=== PATIENT | female | born 1945 | race Caucasian/White ===

== ENCOUNTER 2017-05-05 14:41 | Inpatient (IN) ==
--- NOTE | 2017-05-05 14:55 | EKG Report ---
Stationary ECG Study [facility] ER Test Date: 05/05/2017 2:49:49 PM Pat Name: KAUR WILBURN Department: Room: Gender: F Distance Education Coordinator: : 1945 Requested by: Walker Pride Order Number: [id number] Reading MD: JR TAPIA Intervals [place] Rate: 96 P: 999 NC: 0 QRS: 30 QRSD: 92 T: 38 QT: 361 QTc: 414 Interpretive Statements ATRIAL FIBRILLATION at 96 bpm NONSPECIFIC T WAVE ABNORMALITY, possibly DIGITALIS EFFECT Electronically Signed On 05-06-17 12:21:26 CDT by JR TAPIA [email or web address]
--- NOTE | 2017-05-05 15:14 | XRay Report ---
XR chest 1V portable Indication: Shortness of breath Comparison: None available Findings: The heart and mediastinum are normal in size and configuration. The pulmonary vascularity is normal in caliber. No lung infiltrates, effusions, pneumothorax or other abnormality is demonstrated. Impression: Normal chest x-ray PROCEDURE INTERPRETED AT [facility] DEPARTMENT OF RADIOLOGY Final Report Signed by: Dr. Duncan Ace
[2017-05-05 15:29] LABS: Basophils # 0.1 10*3/uL (0.0-0.2); Basophils % 1.2 % (0.0-0.8); Eosinophils # 0.3 10*3/uL (0.0-0.87); Eosinophils % 4.3 % (0.00-10.9); Hematocrit 35.4 VOL% (35.7-47.0); Hemoglobin 12.1 GM/DL (12.0-16.0); Immature Granulocytes % 0.4 %; Immature Granulocytes Absolute 0.03 #; Lymphocytes # 1.7 10*3/uL (1.4-4.0); Mean Corpuscular HGB Conc 34.2 GM/DL (32-36); Mean Corpuscular Hemoglobin 33 PG (27-34); Mean Corpuscular Volume 95.9 FL (87-102); Mean Platelet Volume 10.1 FL (9.6-12.0); Monocytes # 0.5 10*3/uL (0.11-0.8); Monocytes % 6.3 % (1.7-12.7); Neutrophils # 4.7 10*3/uL (1.4-7.4); Neutrophils % 64.8 % (38.7-73.9); Platelet Count 266 T/CUMM (130-400); Red Blood Count 3.69 MC/CUMM (3.8-5.5); Red Cell Distribution Width 12.9 % (9.3-17.3); White Blood Count 7.3 T/CUMM (4-12)
[2017-05-05 15:37] LABS: INR 3.6
[2017-05-05 15:39] LABS: PT Patient Result 41.5 SECS
[2017-05-05 16:04] LABS: Blood Urea Nitrogen 28 MG/DL (7-18); Calcium 8.4 MG/DL (8.5-10.1); Glucose 88 MG/DL (74-106); Magnesium 2.5 MG/DL (1.8-2.4); Osmolality,Calculated 287.1 MOS/KG (273-304); Potassium 4.6 MMOL/L (3.5-5.1); Sodium 142 MMOL/L (136-145); Troponin I Only < 0.015 NG/ML (0.00-0.045)
[2017-05-05] MEDS ORDERED: diphenhydrAMINE CAP 25 MG CAPSULE PO PRN (17:08)
[2017-05-05] MEDS ORDERED: MAGNESIUM SULF RIDER 2 GM in PREMIX 1 EACH IV PRN (17:08)
[2017-05-05] MEDS ORDERED: ACETAMINOPHEN 325 MG TABLET PO PRN (17:08)
[2017-05-05] MEDS ORDERED: DOCUSATE SODIUM 100 MG CAPSULE PO PRN (17:08)
[2017-05-05] MEDS ORDERED: MAGNESIUM SULF RIDER 4 GM in PREMIX 1 EACH IV PRN (17:08)
[2017-05-05] MEDS ORDERED: ONDANSETRON 4 MG/2 ML VIAL IV PRN (17:08)
[2017-05-05] MEDS ORDERED: WARFARIN 5 MG TABLET PO SCH (17:30)
--- NOTE | 2017-05-05 17:30 | Cardiology History & Physical ---
Assessment and Plan - Time spent with patient Time spent with patient: Greater than 30 minutes (due to assessment, plan, and documentation) (1) Dizziness Status: Acute Assessment and plan: See plan of care listed below. Current Visit: Yes (2) Weakness Status: Acute Assessment and plan: See plan of care listed below. Current Visit: Yes (3) Paroxysmal atrial fibrillation Status: Chronic Assessment and plan: See plan of care listed below. Current Visit: Yes (4) Hypertension Status: Chronic Assessment and plan: See plan of care listed below. Current Visit: Yes (5) Chronic anticoagulation Status: Chronic Assessment and plan: See plan of care listed below. Current Visit: Yes (6) Hypercholesterolemia Status: Chronic Assessment and plan: See plan of care listed below. Current Visit: Yes (7) GERD (gastroesophageal reflux disease) Status: Chronic Assessment and plan: See plan of care listed below. Current Visit: Yes History of Present Illness Chief complaint: dizziness, weakness History of present illness: RECORDING STUDIO INTERN: Dr. Joy PCP: Dr. Norman Ms. Torres is being seen in the emergency room, #11. Ms. Torres is a 71 year old female with history of paroxysmal atrial fibrillation, chronic hypertension, chronic dyspnea, easy fatigability, GERD, hypercholesterolemia, chronic anticoagulation. Risk factors are significant for : Age, hypertension, sedentary lifestyle. She was last seen by Dr. Joy in clinic on December 29, 2016 and at that time was doing well. She is a lifetime non -smoker. She has required cardioversion in the past, approximately 6 or 7 years ago. She was sent to the emergency room from Dr. Norman's office today for further evaluation of atrial fibrillation. She tells me that she has felt fatigued for the past 4 weeks, but worse this week. She tells me that 2 days ago she fell twice in 1 day due to dizziness and lightheadedness. She denies any syncopal episodes. She states she can feel occasional palpitations on exertion. Her is at the bedside and reports that he has been checking her heart rate and blood pressure this week her blood pressure has been running around 90/60 with heart rates in the 90s. He states her baseline is usually a heart rate in the 80s. She denies any chest pain, shortness of breath, nausea, vomiting, diaphoresis, melena, hematochezia, hematuria, dysuria, fever, chills. Additional ROS includes easy fatigability, chronic dyspnea, easy bruising. Upon arrival, her chest x-ray was normal, BNP was 170 with creatinine 1.5 and GFR 37. Troponin was negative. EKG reveals atrial fibrillation. H&H is stable at 12.1 & 35.4. Urinalysis is pending. Blood pressure has been stable with systolic BP between 114-135 and heart rates 90-102. ASSESSMENT/PLAN: 1. DIZZINESS - Will check orthostatic vital signs. Continue to monitor vital signs. Will further discuss with Dr. Perez and await additional recommendations. 2. WEAKNESS - Will check urinalysis. It's possible her dizziness and weakness are related to her hypotension at home and/or her atrial fibrillation, although her BP is currently well controlled and she is currently in atrial fibrillation with controlled ventricular response. 3. PAROXYSMAL ATRIAL FIBRILLATION - Continue coreg and amiodarone. Will check TSH. She is chronically anticoagulated with Coumadin. Will monitor INR. 4. HYPERTENSION - Currently well controlled but reportedly hypotensive at home this week. Will monitor and adjust accordingly. 5. CHRONIC ANTICOAGULATION - Will hold today's dose of Coumadin and recheck INR in AM. Anticipate resuming Coumadin tomorrow. 6. HYPERCHOLESTEROLEMIA - Continue lipid lowering agent. Check lipid panel in AM. 7. GERD - Continue PPI. Home Medications Medication Instructions Recorded Confirmed Type Amiodarone HCl [Pacerone] 200 mg PO QAM 05/05/17 05/05/17 History Carvedilol [Coreg] 6.25 mg PO BID 05/05/17 05/05/17 History Meloxicam 15 mg PO QOTHER DAY 05/05/17 05/05/17 History Omeprazole 20 mg PO QAM 05/05/17 05/05/17 History Selenium [Selenium Tab] 50 mcg PO DAILY 05/05/17 05/05/17 History Warfarin [Coumadin] 2.5 mg PO SUTUWETHSA 05/05/17 05/05/17 History Warfarin [Coumadin] 5 mg PO MOFR 05/05/17 05/05/17 History Zolpidem Tartrate 10 mg PO BEDTIME 05/05/17 05/05/17 History amLODIPine [Norvasc] 10 mg PO QAM 05/05/17 05/05/17 History traMADol TAB [Ultram] 50 mg PO Q12H PRN 05/05/17 05/05/17 History Allergies Allergy/AdvReac Type Severity Reaction Status Date / Time No Known Allergies Allergy Verified 05/05/17 14:46 12 point system: reviewed and no additional remarkable complaints except as stated Medical,Surgical,& Family Hx - Medical History Cardio: History of: Cardiac Dysrhythmia (atrial fibrillation ), Hypertension Endocrine: History of: Dyslipidemia Gastrointestinal: History of: GERD Musculoskeletal: History of: Musculoskeletal Problems (chronic left knee pain) - Surgical History Reproductive Surgeries: Surgical HX of;: Hysterectomy (partial) - Family History Family History: Reports;: Family Heart Disease - Social History Smoking Status: Never smoker Frequency of Alcohol Use: None Type of Drug Use: None Marital Status: Lives With:: Spouse Functional capacity: independent ambulation Cardiology Physical Exam - Constitutional Vitals: Vital Signs Temp Pulse Resp BP Pulse Ox 98.2 F 90 18 121/71 98 05/05/17 15:00 05/05/17 16:00 05/05/17 16:00 05/05/17 16:00 05/05/17 16:00 Intake and Output 05/05/17 05/05/17 05/05/17 06:59 14:59 22:59 Other: Weight 158 lb Patient Weight 05/06/17 06:59 Weight 158 lb Exam: General appearance: Pleasant and cooperative. Overweight, no acute distress. - Head Head exam: Present: normal inspection, normocephalic, atraumatic. Absent: hematoma, laceration - Eye Eye exam: Present: EOMI. Absent: conjunctival injection, nystagmus, periorbital swelling, scleral icterus, laceration to eyelids Pupils: Present: PERRL. Absent: constricted, dilated, fixed, irregular, unequal - ENT ENT exam: Present: normal exam, normal external ear exam - Neck Neck exam: Present: normal inspection. Absent: lymphadenopathy, meningismus, tenderness, thyromegaly, carotid bruit - Respiratory Respiratory exam: Present: diminished in posterior bases, otherwise clear to auscultation bilaterally. Absent: accessory muscle use, chest wall tenderness, rhonchi, wheezing. - Cardiovascular Cardiovascular exam: Present: regular rate and rhythm. Absent: gallop, JVD, rubs, murmur - GI/Abdominal GI/Abdominal exam: Present: normal bowel sounds, soft. Absent: distended, firm , guarding, hernia, mass, tenderness, rebound. - Extremities Exam Extremities exam: Present: normal inspection, normal capillary refill. Upper extremity pulses 2+. Lower extremity pulses 2+. Absent: calf tenderness, edema -Musculoskeletal Exam Musculoskeletal: Present: No Fluid Collection, No Pain, Normal Range of Motion - Back Exam Back exam: Present: normal inspection. Absent: muscle spasm, vertebral tenderness - Neurological Exam Neurological exam: Present: alert, oriented X3, grossly intact without resting or essential tremor - Psychiatric Psychiatric exam: Present: normal affect, normal mood - Skin Skin exam: Present: normal color, warm, dry, intact. Absent: cyanosis, diaphoretic, rash, urticaria Result/EKG - Labs CBC & BMP: 05/05/17 15:19 05/05/17 15:19 Lab Results: I have reviewed the past 24 hour labs Labs: Laboratory Results - last 24 hr 05/05/17 05/05/17 05/05/17 15:19 15:19 15:19 WBC 7.3 RBC 3.69 L Hgb 12.1 Hct 35.4 L MCV 95.9 MCH 33 MCHC 34.2 RDW 12.9 Plt Count 266 MPV 10.1 Neut % (Auto) 64.8 Lymph % (Auto) 23.0 [place] % (Auto) 6.3 Eos % (Auto) 4.3 Baso % (Auto) 1.2 H Neut # (Auto) 4.7 Lymph # (Auto) 1.7 [place] # (Auto) 0.5 Eos # (Auto) 0.3 Baso # (Auto) 0.1 Immature Gran % 0.4 Nucleated RBC % 0.0 Immature Gran # 0.03 Nucleated RBCs # 0.00 INR 3.6 PT Patient/Control Mix 41.5 Sodium 142 Potassium 4.6 Chloride 110 H Carbon Dioxide 23 Anion Gap 13.6 BUN 28 H Creatinine 1.50 H GFR Calculation 37 BUN/Creatinine Ratio 18.00 Glucose 88 Calculated Osmolality 287.1 Calcium 8.4 L Magnesium 2.5 H Troponin I < 0.015 B-Natriuretic Peptide 05/05/17 15:19 WBC RBC Hgb Hct MCV MCH MCHC RDW Plt Count MPV Neut % (Auto) Lymph % (Auto) [place] % (Auto) Eos % (Auto) Baso % (Auto) Neut # (Auto) Lymph # (Auto) [place] # (Auto) Eos # (Auto) Baso # (Auto) Immature Gran % Nucleated RBC % Immature Gran # Nucleated RBCs # INR PT Patient/Control Mix Sodium Potassium Chloride Carbon Dioxide Anion Gap BUN Creatinine GFR Calculation BUN/Creatinine Ratio Glucose Calculated Osmolality Calcium Magnesium Troponin I B-Natriuretic Peptide 170 H - EKG EKG results: interpreted by me EKG shows: atrial fibrillation
[2017-05-05] MEDS ORDERED: CARVEDILOL 6.25 MG TABLET PO SCH (21:00)
[2017-05-05] MEDS: ATORVASTATIN 10 MG TABLET PO SCH (21:39)
[2017-05-05] MEDS: ASCORBIC ACID 500 MG TABLET PO SCH (21:39)
[2017-05-06 05:39] LABS: Basophils # 0.1 10*3/uL (0.0-0.2); Basophils % 1.6 % (0.0-0.8); Eosinophils # 0.3 10*3/uL (0.0-0.87); Eosinophils % 6.5 % (0.00-10.9); Hematocrit 32.7 VOL% (35.7-47.0); Hemoglobin 11.3 GM/DL (12.0-16.0); Immature Granulocytes % 0.4 %; Immature Granulocytes Absolute 0.02 #; Lymphocytes # 1.5 10*3/uL (1.4-4.0); Lymphocytes % 34.5 % (21.3-54.2); Mean Corpuscular HGB Conc 34.6 GM/DL (32-36); Mean Corpuscular Hemoglobin 35 PG (27-34); Mean Corpuscular Volume 99.7 FL (87-102); Mean Platelet Volume 10.5 FL (9.6-12.0); Monocytes # 0.4 10*3/uL (0.11-0.8); Monocytes % 8.3 % (1.7-12.7); Neutrophils # 2.2 10*3/uL (1.4-7.4); Neutrophils % 48.7 % (38.7-73.9); Platelet Count 231 T/CUMM (130-400); Red Blood Count 3.28 MC/CUMM (3.8-5.5); Red Cell Distribution Width 12.9 % (9.3-17.3); White Blood Count 4.5 T/CUMM (4-12)
[2017-05-06 06:23] LABS: Calcium 8.5 MG/DL (8.5-10.1); Magnesium 2.3 MG/DL (1.8-2.4); Potassium 4.7 MMOL/L (3.5-5.1); Risk Ratio 3.11; Thyroid Stimulating Hormone 1.57 uIU/ml (0.358-3.74)
[2017-05-06 06:40] LABS: PT Patient Result 34.1 SECS
[2017-05-06] MEDS: PANTOPRAZOLE 40 MG TABLET PO SCH (08:58)
[2017-05-06] MEDS: AMIODARONE 200 MG TABLET PO SCH (08:58)
[2017-05-06] MEDS: ASCORBIC ACID 500 MG TABLET PO SCH ×2 (08:58→20:20)
[2017-05-06] MEDS: METOPROLOL SUCCINATE XL 25 MG TABLET PO SCH (08:58)
--- NOTE | 2017-05-06 11:31 | Cardiology Progress Note ---
Assessment and Plan (1) Paroxysmal atrial fibrillation Status: Acute Assessment and plan: The patient has symptomatic atrial fibrillation. We discussed the options for management and we are going to do a cardioversion. She is already on chronic anticoagulation with a therapeutic INR. We are going to go ahead and do this today and monitor her overnight. She remains in sinus rhythm hopefully we can discharge her home tomorrow. Current Visit: Yes (2) Dizziness Status: Acute Assessment and plan: I think the weakness and dizziness are probably related to her atrial fibrillation. She tells me this is the way she has felt in the past when she had it and after cardioversion she felt better. I am going to do a cardioversion today. Current Visit: Yes (3) Generalized weakness Status: Acute Current Visit: Yes (4) Chronic anticoagulation Status: Chronic Current Visit: Yes (5) GERD (gastroesophageal reflux disease) Status: Chronic Current Visit: Yes (6) Hypercholesterolemia Status: Chronic Current Visit: Yes (7) Hypertension Status: Chronic Current Visit: Yes Cardiology - PN: Subj Interval history: The patient continues to feel fatigued and weak today. I reviewed all of her tracings and discussed extensively with her the options for management. Apparently she feels very fatigued and weak whenever she is in atrial fibrillation. After discussing the options I am going to go ahead and cardiovert her back to sinus rhythm. She is on chronic anticoagulation and her INR is 3.0. We discussed the risk, alternatives and potential benefits and she understands and wishes to proceed. Current Medications Acetaminophen (Tylenol Tab) 650 mg PO Q4H PRN PRN Reason: fever, headache/body aches Amiodarone HCl (Cordarone Tab) 200 mg PO QAM COUNTS INCLUDE 234 BEDS AT THE [facility] Last Admin: 05/06/17 08:58 Dose: 200 mg Ascorbic Acid (Vitamin C Tab) 1,000 mg PO BID COUNTS INCLUDE 234 BEDS AT THE [facility] Last Admin: 05/06/17 08:58 Dose: 1,000 mg Atorvastatin Calcium (Lipitor) 10 mg PO BEDTIME COUNTS INCLUDE 234 BEDS AT THE [facility] Last Admin: 05/05/17 21:39 Dose: 10 mg Diphenhydramine HCl (Benadryl Cap) 25 mg PO Q6H PRN PRN Reason: Itching Docusate Sodium (Colace Cap) 100 mg PO BID PRN PRN Reason: Constipation Magnesium Sulfate 2 gm/ Premix 50 mls @ 25 mls/hr IV .PER PROTOCOL PRN; Protocol PRN Reason: Per Protocol Magnesium Sulfate 4 gm/ Premix 100 mls @ 25 mls/hr IV .PER PROTOCOL PRN; Protocol PRN Reason: Per Protocol Metoprolol Succinate (Toprol Xl) 25 mg PO DAILY COUNTS INCLUDE 234 BEDS AT THE [facility] Last Admin: 05/06/17 08:58 Dose: 25 mg Ondansetron HCl (Zofran Inj) 4 mg IV Q4H PRN PRN Reason: Nausea Pantoprazole Sodium (Protonix Tab) 40 mg PO DAILY COUNTS INCLUDE 234 BEDS AT THE [facility] Last Admin: 05/06/17 08:58 Dose: 40 mg Warfarin Sodium (Coumadin) 2.5 mg PO SUTUWETHSA COUNTS INCLUDE 234 BEDS AT THE [facility] Warfarin Sodium (Coumadin) 5 mg PO MOFR COUNTS INCLUDE 234 BEDS AT THE [facility] Last Admin: 05/06/17 07:12 Dose: Not Given Exam (Progress Note) - Constitutional Vitals: Period Temp Pulse Resp BP Sys/Nino Pulse Ox Last 24 Hr 96.5 F-98.5 F 89-102 16-20 95-138/56-89 95-102 Exam: General: Frail, elderly HEENT: Normocephalic, atraumatic Neck: Supple Neck, Midline Trachea Cardiac: Irregular rhythm, 2/6 systolic murmur, no gallop, no rub Lungs: Clear to Ascultation, No Wheeze, Rales, Rhonchi Neuro: Cranial Nerve 2-12 Intact, diffuse generalized weakness Abdomen: Soft, Active Bowel Sounds, No Masses, No Pulsations/Bruits Skin: Normal color, no rash Extremities: No Clubbing, No Cyanosis, No Edema, Normal Upper Extr. Pulses Musculoskeletal: No acute abnormality noted Psychiatric: The patient is alert and oriented. The patient has a flat affect but does not appear to be anxious or depressed. Result/EKG - Labs CBC & BMP: 05/06/17 05:02 05/06/17 05:02 Lab Results: I have reviewed the past 24 hour labs Labs: Laboratory Results - last 24 hr 05/05/17 05/05/17 05/05/17 15:19 15:19 15:19 WBC 7.3 RBC 3.69 L Hgb 12.1 Hct 35.4 L MCV 95.9 MCH 33 MCHC 34.2 RDW 12.9 Plt Count 266 MPV 10.1 Neut % (Auto) 64.8 Lymph % (Auto) 23.0 [place] % (Auto) 6.3 Eos % (Auto) 4.3 Baso % (Auto) 1.2 H Neut # (Auto) 4.7 Lymph # (Auto) 1.7 [place] # (Auto) 0.5 Eos # (Auto) 0.3 Baso # (Auto) 0.1 Immature Gran % 0.4 Nucleated RBC % 0.0 Immature Gran # 0.03 Nucleated RBCs # 0.00 INR 3.6 PT Patient/Control Mix 41.5 Sodium 142 Potassium 4.6 Chloride 110 H Carbon Dioxide 23 Anion Gap 13.6 BUN 28 H Creatinine 1.50 H GFR Calculation 37 BUN/Creatinine Ratio 18.00 Glucose 88 Calculated Osmolality 287.1 Calcium 8.4 L Magnesium 2.5 H Troponin I < 0.015 B-Natriuretic Peptide Triglycerides Cholesterol LDL Cholesterol VLDL Cholesterol HDL Cholesterol Heart Disease Risk Ratio [facility] 3rd Generation 05/05/17 05/06/17 05/06/17 15:19 05:02 05:02 WBC 4.5 D RBC 3.28 L Hgb 11.3 L Hct 32.7 L MCV 99.7 MCH 35 H MCHC 34.6 RDW 12.9 Plt Count 231 MPV 10.5 Neut % (Auto) 48.7 Lymph % (Auto) 34.5 [place] % (Auto) 8.3 Eos % (Auto) 6.5 Baso % (Auto) 1.6 H Neut # (Auto) 2.2 Lymph # (Auto) 1.5 [place] # (Auto) 0.4 Eos # (Auto) 0.3 Baso # (Auto) 0.1 Immature Gran % 0.4 Nucleated RBC % 0.0 Immature Gran # 0.02 Nucleated RBCs # 0.00 INR PT Patient/Control Mix Sodium 143 Potassium 4.7 Chloride 111 H Carbon Dioxide 27 Anion Gap 9.7 BUN 23 H Creatinine 1.20 H GFR Calculation 48 BUN/Creatinine Ratio 19.00 Glucose 86 Calculated Osmolality 287.0 Calcium 8.5 Magnesium 2.3 Troponin I B-Natriuretic Peptide 170 H Triglycerides 80 Cholesterol 174 LDL Cholesterol 114.0 VLDL Cholesterol 16.0 HDL Cholesterol 56 Heart Disease Risk Ratio 3.11 TSH 3rd Generation 1.570 05/06/17 05:02 WBC RBC Hgb Hct MCV MCH MCHC RDW Plt Count MPV Neut % (Auto) Lymph % (Auto) [place] % (Auto) Eos % (Auto) Baso % (Auto) Neut # (Auto) Lymph # (Auto) [place] # (Auto) Eos # (Auto) Baso # (Auto) Immature Gran % Nucleated RBC % Immature Gran # Nucleated RBCs # INR 3.0 PT Patient/Control Mix 34.1 Sodium Potassium Chloride Carbon Dioxide Anion Gap BUN Creatinine GFR Calculation BUN/Creatinine Ratio Glucose Calculated Osmolality Calcium Magnesium Troponin I B-Natriuretic Peptide Triglycerides Cholesterol LDL Cholesterol VLDL Cholesterol HDL Cholesterol Heart Disease Risk Ratio TSH 3rd Generation - EKG EKG results: interpreted by me
[2017-05-06] MEDS ORDERED: MIDAZOLAM 10 MG/2 ML VIAL ONE (11:35)
[2017-05-06] MEDS ORDERED: FLUMAZENIL 0.5 MG/5 ML VIAL IV ONE (11:35)
[2017-05-06] MEDS ORDERED: MIDAZOLAM 2 MG/2 ML VIAL IV ONE (11:49)
[2017-05-06] MEDS ORDERED: MIDAZOLAM 10 MG/2 ML VIAL IV ONE (11:51)
--- NOTE | 2017-05-06 12:10 | Operative Note ---
Procedure: The patient had symptomatic atrial fibrillation and is on chronic anticoagulation. She is therapeutic on her anticoagulation and we elected to perform DC cardioversion to sinus rhythm. After informed consent was obtained patient was sedated lightly to facilitate the procedure and underwent successful DC cardioversion with a single 360 J shock to normal sinus rhythm. There were no problems or complications with the procedure. Surgeon / Physician: Ronak Stockton Estimated blood loss: none, minimal Specimens: none sent Condition: stable Results - Labs CBC & BMP: 05/06/17 05:02 05/06/17 05:02 Discharge Plan - Discharge Medications No Action Omeprazole 20 mg PO QAM Amiodarone HCl [Pacerone] 200 mg PO QAM traMADol TAB [Ultram] 50 mg PO Q12H PRN PRN Reason: Pain amLODIPine [Norvasc] 10 mg PO QAM Warfarin [Coumadin] 5 mg PO MOFR Meloxicam 15 mg PO QOTHER DAY Zolpidem Tartrate 10 mg PO BEDTIME Atorvastatin [Lipitor] 10 mg PO BEDTIME Selenium [Selenium Tab] 200 mcg PO DAILY Warfarin [Coumadin] 2.5 mg PO SUTUWETHSA Carvedilol [Coreg] 6.25 mg PO BID Lisinopril 20 mg PO DAILY - Follow Up or Referral - Forms/Instructions
--- NOTE | 2017-05-06 12:49 | ECHO Report ---
Evelin Torres Exam Date: 05/06/2017 09:53 Referring Physician: Technologist: Ale Lopes Age: 71 Ht (in): 67 Wt (lb): 158 Gender: F Exam Location: [facility] Indications: chronic anticoag, hypercholesterolemia, A Fib, HTN, weakness, near syncope, GERD, dizzy BP: 110 / 56 HR: 89 Rhythm: Sinus Technical Quality: IMPRESSIONS Normal left ventricular size and systolic function, left ventricular ejection fraction is estimated at 55-60 %. Mild bilateral atrial enlargement. Trace mitral valve regurgitation. Mild aortic valve sclerosis without stenosis. Trace tricuspid valve regurgitation. MEASUREMENTS (Male / Female) Normal Values 2D ECHO LV Diastolic Diameter PLAX 4.3 cm 4.2 - 5.9 / 3.9 - 5.3 cm LV Systolic Diameter PLAX 2.1 cm LV Fractional Shortening PLAX 50.2 % IVS Diastolic Thickness 1.2 cm 0.6 - 1.0 / 0.6 - 0.9 cm LVPW Diastolic Thickness 1.0 cm 0.6 - 1.0 / 0.6 - 0.9 cm RV Internal Dim ED PLAX 3.1 cm Aortic Root Diameter 2.4 cm LA Systolic Diameter LX 4.0 cm 3.0 - 4.0 / 2.7 - 3.8 cm DOPPLER TR Peak Velocity 236.0 cm/s TR Peak Gradient 22.3 mmHg FINDINGS Left Ventricle Normal left ventricular size and systolic function, left ventricular ejection fraction is estimated at 55-60 %. Right Ventricle Normal right ventricular size. Right Atrium The right atrium is mildly enlarged. Left Atrium The left atrium is mild- moderately enlarged. Mitral Valve Morphologically normal mitral valve. Trace mitral valve regurgitation. Aortic Valve Mild aortic valve sclerosis without stenosis. Tricuspid Valve Morphologically normal tricuspid valve. Trace tricuspid valve regurgitation. Pulmonic Valve Morphologically normal pulmonic valve. Pericardium No pericardial effusion. Aorta Normal size aortic root and proximal ascending aorta. Ronak Stockton (Electronically Signed) Final Date: 06 May 2017 12:47
--- NOTE | 2017-05-06 14:47 | EKG Report ---
Stationary ECG Study [facility] Test Date: 05/06/2017 11:58:34 AM Pat Name: KAUR WILBURN Department: Room: 293 Gender: F Accounts Payable Processor: : 1945 Requested by: Clark Velasquez Order Number: [id number] Reading MD: ADORE MORRIS Intervals [place] Rate: 62 P: 89 MT: 194 QRS: -15 QRSD: 96 T: 32 QT: 441 QTc: 446 Interpretive Statements SINUS RHYTHM ANTEROSEPTAL INFARCT, AGE UNDETERMINED Electronically Signed On 05-08-17 18:08:34 CDT by ADORE MORRIS [email or web address]
[2017-05-06] MEDS ORDERED: WARFARIN 5 MG TABLET PO SCH (17:10)
[2017-05-06] MEDS: ATORVASTATIN 10 MG TABLET PO SCH (20:20)
[2017-05-06] MEDS ORDERED: ZOLPIDEM 5 MG TABLET PO PRN (21:00)
[2017-05-07 05:13] LABS: Basophils # 0.1 10*3/uL (0.0-0.2); Basophils % 1.7 % (0.0-0.8); Eosinophils # 0.4 10*3/uL (0.0-0.87); Hematocrit 31.2 VOL% (35.7-47.0); Hemoglobin 10.8 GM/DL (12.0-16.0); Immature Granulocytes % 0.4 %; Immature Granulocytes Absolute 0.02 #; Lymphocytes # 1.7 10*3/uL (1.4-4.0); Lymphocytes % 31.2 % (21.3-54.2); Mean Corpuscular HGB Conc 34.6 GM/DL (32-36); Mean Corpuscular Hemoglobin 35 PG (27-34); Monocytes # 0.5 10*3/uL (0.11-0.8); Monocytes % 8.5 % (1.7-12.7); Neutrophils # 2.7 10*3/uL (1.4-7.4); Neutrophils % 51.2 % (38.7-73.9); Platelet Count 233 T/CUMM (130-400); Red Blood Count 3.09 MC/CUMM (3.8-5.5); Red Cell Distribution Width 12.9 % (9.3-17.3); White Blood Count 5.3 T/CUMM (4-12)
[2017-05-07 05:25] LABS: INR 2.5
[2017-05-07 05:26] LABS: PT Patient Result 27.7 SECS
[2017-05-07 05:42] LABS: Calcium 8.5 MG/DL (8.5-10.1); Magnesium 2.4 MG/DL (1.8-2.4); Osmolality,Calculated 284.3 MOS/KG (273-304); Potassium 4.9 MMOL/L (3.5-5.1)
[2017-05-07] MEDS: AMIODARONE 200 MG TABLET PO SCH (08:59)
[2017-05-07] MEDS: PANTOPRAZOLE 40 MG TABLET PO SCH (08:59)
[2017-05-07] MEDS: METOPROLOL SUCCINATE XL 25 MG TABLET PO SCH (08:59)
[2017-05-07] MEDS: ASCORBIC ACID 500 MG TABLET PO SCH (08:59)
--- NOTE | 2017-05-07 11:48 | Discharge Summary ---
Hospital Course - Hospital Course Hospital Course: The patient is a 71-year-old white female with a history of paroxysmal atrial fibrillation, hypertension, hyperlipidemia, and chronic anticoagulation. She is normally followed by Dr. Joy. The patient had been feeling fatigued for several weeks and came into the hospital for further evaluation. She was found to be in atrial fibrillation with heart rates in the 90s. She was mildly hypotensive with systolic pressures in the 90-100 range. Since the patient was on chronic anticoagulation and her INR was 3.0 we performed DC cardioversion with one shock converting her back to sinus rhythm. After the cardioversion the patient has been feeling much better. She has had no problems or symptoms since the cardioversion. I think she is now ready for discharge home. It appears that her symptoms were probably related to the atrial fibrillation. Her blood pressure does run a bit on the low side so I am going to hold her Norvasc for now. I also added vitamin C to her medical regimen as I think this might help prevent recurrences of atrial fibrillation. She has follow-up with Dr. Joy coming up in the next couple of weeks. She can keep that follow-up as scheduled. Diagnosis - Discharge Diagnosis (1) Paroxysmal atrial fibrillation Status: Acute (2) Dizziness Status: Acute (3) Generalized weakness Status: Acute (4) Chronic anticoagulation Status: Chronic (5) GERD (gastroesophageal reflux disease) Status: Chronic (6) Hypercholesterolemia Status: Chronic (7) Hypertension Status: Chronic Specialty Discharge - Follow Up or Referrals Follow up with: Dakota Joy MD [Physician] - (The patient says she has an appointment coming up with him in a couple of weeks. She can keep this appointment as scheduled.) Discharge Plan - Discharge Medications New RX: Ascorbic Acid Tab [Vitamin C Tab] 1,000 mg PO BID tablet Continue RX: Omeprazole 20 mg PO QAM RX: Amiodarone HCl [Pacerone] 200 mg PO QAM RX: traMADol TAB [Ultram] 50 mg PO Q12H PRN PRN Reason: Pain RX: Warfarin [Coumadin] 5 mg PO MOFR RX: Meloxicam 15 mg PO QOTHER DAY RX: Zolpidem Tartrate 10 mg PO BEDTIME RX: Atorvastatin [Lipitor] 10 mg PO BEDTIME RX: Selenium [Selenium Tab] 200 mcg PO DAILY RX: Warfarin [Coumadin] 2.5 mg PO SUTUWETHSA RX: Carvedilol [Coreg] 6.25 mg PO BID RX: Lisinopril 20 mg PO DAILY Discontinued amLODIPine [Norvasc] 10 mg PO QAM - Follow Up or Referral Follow Up: Dakota Joy MD [Physician] - (The patient says she has an appointment coming up with him in a couple of weeks. She can keep this appointment as scheduled.) - Forms/Instructions Exam - Constitutional Vitals: Period Temp Pulse Resp BP Sys/Nino Pulse Ox Last 24 Hr 97.4 F-98.6 F 55-73 16-20 96-106/52-59 95-99 Discharge Results Procedures and tests throughout hospitalization: Pending Orders 05/08/17 04:00 Basic Metabolic Panel IN AM Comp Blood Count Auto Diff IN AM Magnesium IN AM PTINR [Prothrombin Time INR] IN AM Labs on day of discharge: Labs from last 24 hours 05/07/17 05/07/17 05/07/17 03:44 03:44 03:44 WBC 5.3 RBC 3.09 L Hgb 10.8 L Hct 31.2 L MCV 101.0 MCH 35 H MCHC 34.6 RDW 12.9 Plt Count 233 MPV 11.0 Neut % (Auto) 51.2 Lymph % (Auto) 31.2 [place] % (Auto) 8.5 Eos % (Auto) 7.0 Baso % (Auto) 1.7 H Neut # (Auto) 2.7 Lymph # (Auto) 1.7 [place] # (Auto) 0.5 Eos # (Auto) 0.4 Baso # (Auto) 0.1 Immature Gran % 0.4 Nucleated RBC % 0.0 Immature Gran # 0.02 Nucleated RBCs # 0.00 INR 2.5 PT Patient/Control Mix 27.7 Sodium 141 Potassium 4.9 Chloride 107 Carbon Dioxide 27 Anion Gap 11.9 BUN 23 H Creatinine 1.20 H GFR Calculation 48 BUN/Creatinine Ratio 19.00 Glucose 100 Calculated Osmolality 284.3 Calcium 8.5 Magnesium 2.4 DS: Provider Date of admission: 05/05/17 17:07 Primary care physician: . No PCP Attending physician on admission: Clark Javier Discharging clinician: Ronak Stockton MD
[2017-05-07 12:11] VITALS: BP 115/57
== END 2017-05-07 15:30 | disposition home or self-care (01) | DRG 310 ==
LOC: N.ED 14:41 → N.EDINP 17:07 → N.TELEN 18:40
PROVIDERS: ADMIT Internal Medicine Cardiovascular Disease; ATTEND Internal Medicine Cardiovascular Disease

== ENCOUNTER 2017-11-01 05:49 | Inpatient (IN) ==
[2017-11-01 06:31] LABS: INR 1.1; PT Patient Result 11.1 SECS
[2017-11-01 06:33] LABS: Basophils % 0.4 % (0.0-0.8); Eosinophils # 0.1 10*3/uL (0.0-0.87); Eosinophils % 0.6 % (0.00-10.9); Hematocrit 35.6 VOL% (35.7-47.0); Hemoglobin 11.7 GM/DL (12.0-16.0); Immature Granulocytes % 2.1 %; Lymphocytes # 1.5 10*3/uL (1.4-4.0); Lymphocytes % 15.7 % (21.3-54.2); Mean Corpuscular HGB Conc 32.9 GM/DL (32-36); Mean Corpuscular Hemoglobin 33 PG (27-34); Mean Corpuscular Volume 101.1 FL (87-102); Mean Platelet Volume 9.8 FL (9.6-12.0); Monocytes # 0.7 10*3/uL (0.11-0.8); Monocytes % 7.1 % (1.7-12.7); Neutrophils % 74.1 % (38.7-73.9); Platelet Count 249 T/CUMM (130-400); Red Blood Count 3.52 MC/CUMM (3.8-5.5); Red Cell Distribution Width 13.1 % (9.3-17.3); White Blood Count 9.4 T/CUMM (4-12)
[2017-11-01] MEDS ORDERED: cefTRIAXone 1,000 MG VIAL ONE (06:55)
[2017-11-01] MEDS: LACTATED RINGERS 1,000 ML IV SCH (07:00)
[2017-11-01] MEDS ORDERED: cefTRIAXone 1,000 MG in SYRINGE 1 EACH IV ONE (07:00)
[2017-11-01] MEDS ORDERED: MANNITOL 12.5 GM/50 ML VIAL IV ONE (07:01)
[2017-11-01] MEDS ORDERED: AMPICILLIN/SULBACTAM 3,000 MG VIAL ONE (07:02)
[2017-11-01] MEDS ORDERED: AMPICILLIN/SULBACTAM 3,000 MG in SODIUM CHLORIDE 0.9% 100 ML IV ONE (07:04)
[2017-11-01] MEDS ORDERED: CLINDAMYCIN 600 MG/4 ML VIAL ONE (07:29)
[2017-11-01] MEDS ORDERED: CLINDAMYCIN INJ 600 MG in PREMIX 1 EACH IV ONE (08:28)
[2017-11-01 10:32] LABS: Apearance,Urine Slightly Hazy (Clear); Bilirubin,Urine Negative (Negative); Blood, Urine Large mg/dL (Negative); Glucose,Urine (UA) Negative (Negative); Ketones,Urine Negative (Negative); Mucus,Urine Occasional /LPF (Occasional); Nitrite,Urine Negative (Negative); Protein,Urine 30 MG/DL; RBC,Urine 953 /HPF (0-4); Urine Color Yellow (Yellow); Urine Specific Gravity 1.048 (1.001-1.035); Urine Urobilinogen < 2.0 EU/DL (0.2-1.0); WBC,Urine 3 /HPF (0-6)
[2017-11-01] MEDS ORDERED: ACETAMINOPHEN 500 MG TABLET PO PRN (10:59)
[2017-11-01] MEDS ORDERED: HYDROmorphone PCA 30 MG/30 ML SYRINGE IV SCH (11:00)
[2017-11-01] MEDS ORDERED: PROPOFOL 200 MG/20 ML VIAL IV ONE (11:01)
[2017-11-01] MEDS ORDERED: ACETAMINOPHEN 1,000 MG/100 ML VIAL IV ONE (11:02)
[2017-11-01] MEDS ORDERED: fentaNYL 100 MCG/2 ML VIAL ONE (11:02)
[2017-11-01] MEDS ORDERED: LACTATED RINGERS 1,000 ML IV ONE (11:02)
[2017-11-01] MEDS ORDERED: SEVOFLURANE 1 UNIT/15 MINUTE INH ONE (11:02)
[2017-11-01] MEDS ORDERED: MIDAZOLAM 2 MG/2 ML VIAL ONE (11:02)
[2017-11-01] MEDS ORDERED: ROCURONIUM 100 MG/10 ML VIAL IV ONE (11:02)
[2017-11-01] MEDS: SODIUM CHLORIDE 0.9% 1,000 ML IV SCH (12:34)
[2017-11-01] MEDS: ONDANSETRON 4 MG/2 ML VIAL IV PRN ×2 (13:44→18:21)
[2017-11-01] MEDS: AMPICILLIN/SULBACTAM 3,000 MG in SODIUM CHLORIDE 0.9% 100 ML IV SCH (17:09)
[2017-11-01] MEDS: MUPIROCIN 2% OINT 22 GM TUBE TOP SCH ×2 (17:09→21:16)
[2017-11-01] MEDS: PROMETHAZINE 25 MG/1 ML VIAL IM PRN (20:42)
[2017-11-01] MEDS: AMIODARONE 200 MG TABLET PO SCH (21:13)
[2017-11-01] MEDS: CARVEDILOL 6.25 MG TABLET PO SCH (21:13)
[2017-11-01] MEDS: CALCIUM (CITRATE)/VITAMIN D 200 MG-125 UNIT TABLET PO SCH (21:13)
[2017-11-01] MEDS: ASCORBIC ACID 500 MG TABLET PO SCH (21:13)
[2017-11-01] MEDS: ALVIMOPAN 12 MG CAPSULE PO SCH (21:13)
[2017-11-01] MEDS: SELENIUM 200 MCG TABLET PO SCH (21:13)
[2017-11-02] MEDS: SODIUM CHLORIDE 0.9% 1,000 ML IV SCH ×3 (00:19→16:23)
[2017-11-02] MEDS: AMPICILLIN/SULBACTAM 3,000 MG in SODIUM CHLORIDE 0.9% 100 ML IV SCH ×3 (04:01→21:50)
[2017-11-02 07:10] LABS: Osmolality,Calculated 274.7 MOS/KG (273-304); Potassium 4.5 MMOL/L (3.5-5.1)
[2017-11-02 08:02] LABS: Basophils % 0.1 % (0.0-0.8); Eosinophils # 0.1 10*3/uL (0.0-0.87); Eosinophils % 0.6 % (0.00-10.9); Hemoglobin 10.9 GM/DL (12.0-16.0); Immature Granulocytes % 1.3 %; Immature Granulocytes Absolute 0.12 #; Lymphocytes # 0.9 10*3/uL (1.4-4.0); Mean Corpuscular HGB Conc 32.5 GM/DL (32-36); Mean Corpuscular Hemoglobin 33 PG (27-34); Mean Corpuscular Volume 100.6 FL (87-102); Mean Platelet Volume 11.2 FL (9.6-12.0); Monocytes # 0.7 10*3/uL (0.11-0.8); Monocytes % 7.6 % (1.7-12.7); Neutrophils # 7.2 10*3/uL (1.4-7.4); Neutrophils % 80.4 % (38.7-73.9); Platelet Count 226 T/CUMM (130-400); Red Blood Count 3.33 MC/CUMM (3.8-5.5); White Blood Count 8.9 T/CUMM (4-12)
[2017-11-02 08:03] LABS: Hematocrit 33.5 VOL% (35.7-47.0)
[2017-11-02] MEDS: ATORVASTATIN 10 MG TABLET PO SCH (09:22)
[2017-11-02] MEDS: ALVIMOPAN 12 MG CAPSULE PO SCH ×2 (09:22→21:57)
[2017-11-02] MEDS: CALCIUM (CITRATE)/VITAMIN D 200 MG-125 UNIT TABLET PO SCH ×2 (09:22→21:57)
[2017-11-02] MEDS: LISINOPRIL 20 MG TABLET PO SCH (09:22)
[2017-11-02] MEDS: ASCORBIC ACID 500 MG TABLET PO SCH ×2 (09:22→21:56)
[2017-11-02] MEDS: CARVEDILOL 6.25 MG TABLET PO SCH ×2 (09:23→16:42)
[2017-11-02] MEDS: AMIODARONE 200 MG TABLET PO SCH ×2 (09:23→21:57)
[2017-11-02] MEDS: PANTOPRAZOLE 40 MG TABLET PO SCH (09:23)
[2017-11-02] MEDS: MUPIROCIN 2% OINT 22 GM TUBE TOP SCH ×2 (09:25→16:23)
[2017-11-02] MEDS: LACTATED RINGERS 1,000 ML IV SCH (10:05)
[2017-11-02] MEDS: PROMETHAZINE 25 MG/1 ML VIAL IM PRN (13:26)
[2017-11-02] MEDS: SELENIUM 200 MCG TABLET PO SCH (21:57)
[2017-11-03] MEDS: SODIUM CHLORIDE 0.9% 1,000 ML IV SCH (02:58)
[2017-11-03] MEDS: MUPIROCIN 2% OINT 22 GM TUBE TOP SCH ×3 (02:58→15:47)
[2017-11-03] MEDS: AMPICILLIN/SULBACTAM 3,000 MG in SODIUM CHLORIDE 0.9% 100 ML IV SCH ×2 (05:11→12:16)
[2017-11-03] MEDS: CALCIUM (CITRATE)/VITAMIN D 200 MG-125 UNIT TABLET PO SCH (08:27)
[2017-11-03] MEDS: ATORVASTATIN 10 MG TABLET PO SCH (08:27)
[2017-11-03] MEDS: ASCORBIC ACID 500 MG TABLET PO SCH (08:27)
[2017-11-03] MEDS: LISINOPRIL 20 MG TABLET PO SCH (08:27)
[2017-11-03] MEDS: ALVIMOPAN 12 MG CAPSULE PO SCH (08:27)
[2017-11-03] MEDS: AMIODARONE 200 MG TABLET PO SCH (08:27)
[2017-11-03] MEDS: CARVEDILOL 6.25 MG TABLET PO SCH (08:27)
[2017-11-03] MEDS: PANTOPRAZOLE 40 MG TABLET PO SCH (08:27)
[2017-11-03 16:39] VITALS: BP 133/59
== END 2017-11-03 17:10 | disposition home or self-care (01) | DRG 661 ==
LOC: N.OR 05:49 → N.SDSINP 05:54 → N.5E 11:50
PROVIDERS: ADMIT Urology; ATTEND Urology

== ENCOUNTER 2018-03-09 13:02 | Inpatient (IN) ==
[2018-03-09 14:51] LABS: Basophils # 0.1 10*3/uL (0.0-0.2); Basophils % 0.8 % (0.0-0.8); Eosinophils # 0.1 10*3/uL (0.0-0.87); Eosinophils % 0.9 % (0.00-10.9); Hematocrit 37.1 VOL% (35.7-47.0); Hemoglobin 12.5 GM/DL (12.0-16.0); Immature Granulocytes % 0.7 %; Immature Granulocytes Absolute 0.06 #; Lymphocytes # 0.9 10*3/uL (1.4-4.0); Lymphocytes % 9.6 % (21.3-54.2); Mean Corpuscular HGB Conc 33.7 GM/DL (32-36); Mean Corpuscular Hemoglobin 34 PG (27-34); Mean Corpuscular Volume 100.8 FL (87-102); Mean Platelet Volume 10.4 FL (9.6-12.0); Monocytes # 0.5 10*3/uL (0.11-0.8); Monocytes % 5.6 % (1.7-12.7); Neutrophils # 7.4 10*3/uL (1.4-7.4); Neutrophils % 82.4 % (38.7-73.9); Platelet Count 261 T/CUMM (130-400); Red Blood Count 3.68 MC/CUMM (3.8-5.5); Red Cell Distribution Width 12.9 % (9.3-17.3)
[2018-03-09 15:03] LABS: INR 1.7; PT Patient Result 18.1 SECS
[2018-03-09 15:18] LABS: Albumin 3.3 G/DL (3.4-5.0); Bilirubin,Total 0.5 MG/DL (0.2-1.0); Calcium 8.2 MG/DL (8.5-10.1); Osmolality,Calculated 281.4 MOS/KG (273-304); Potassium 4.6 MMOL/L (3.5-5.1); Total Protein 6.5 G/DL (6.4-8.3)
[2018-03-09 15:19] LABS: Apearance,Urine Slightly Hazy (Clear); Bacteria,Urine Occasional /HPF (Few); Bilirubin,Urine Negative (Negative); Blood, Urine Negative (Negative); Glucose,Urine (UA) Negative (Negative); Ketones,Urine 5 mg/dL (Negative); Mucus,Urine Occasional /LPF (Occasional); Nitrite,Urine Negative (Negative); Protein,Urine Negative; RBC,Urine 1 /HPF (0-4); Squamous Epithelial Cell,Urine Occasional /HPF (0-10); Urine Color Yellow (Yellow); Urine Specific Gravity 1.016 (1.001-1.035); Urine Urobilinogen < 2.0 EU/DL (0.2-1.0); WBC,Urine 31 /HPF (0-6)
[2018-03-09] MEDS ORDERED: ACETAMINOPHEN 325 MG TABLET PO PRN (16:34)
[2018-03-09] MEDS ORDERED: ONDANSETRON 4 MG/2 ML VIAL IV PRN (16:34)
[2018-03-09] MEDS ORDERED: traMADol 50 MG TABLET PO PRN (16:34)
[2018-03-09] MEDS: ASCORBIC ACID 500 MG TABLET PO SCH (20:20)
[2018-03-09] MEDS: ZALEPLON 5 MG CAPSULE PO SCH (20:20)
[2018-03-09] MEDS: SELENIUM 200 MCG TABLET PO SCH (20:20)
[2018-03-09] MEDS: DOCUSATE SODIUM 100 MG CAPSULE PO SCH (20:20)
[2018-03-09] MEDS: CALCIUM (CITRATE)/VITAMIN D 200 MG-125 UNIT TABLET PO SCH (20:21)
[2018-03-09] MEDS: CALCIUM (CARBONATE) 600 MG TABLET PO SCH (20:21)
[2018-03-09] MEDS: CARVEDILOL 12.5 MG TABLET PO SCH (20:21)
[2018-03-09] MEDS: ATORVASTATIN 10 MG TABLET PO SCH (20:21)
[2018-03-10 04:56] LABS: Basophils # 0.1 10*3/uL (0.0-0.2); Eosinophils # 0.1 10*3/uL (0.0-0.87); Eosinophils % 1.9 % (0.00-10.9); Hematocrit 32.4 VOL% (35.7-47.0); Hemoglobin 11.5 GM/DL (12.0-16.0); Immature Granulocytes % 0.5 %; Immature Granulocytes Absolute 0.03 #; Lymphocytes # 1.5 10*3/uL (1.4-4.0); Lymphocytes % 26.6 % (21.3-54.2); Mean Corpuscular HGB Conc 35.5 GM/DL (32-36); Mean Corpuscular Hemoglobin 36 PG (27-34); Mean Corpuscular Volume 100.6 FL (87-102); Mean Platelet Volume 10.6 FL (9.6-12.0); Monocytes # 0.5 10*3/uL (0.11-0.8); Monocytes % 9.2 % (1.7-12.7); Neutrophils # 3.5 10*3/uL (1.4-7.4); Neutrophils % 60.8 % (38.7-73.9); Platelet Count 228 T/CUMM (130-400); Red Blood Count 3.22 MC/CUMM (3.8-5.5); Red Cell Distribution Width 13.2 % (9.3-17.3); White Blood Count 5.8 T/CUMM (4-12)
[2018-03-10] MEDS: DOCUSATE SODIUM 100 MG CAPSULE PO SCH ×2 (08:54→21:04)
[2018-03-10] MEDS: LISINOPRIL 20 MG TABLET PO SCH (08:54)
[2018-03-10] MEDS: ASCORBIC ACID 500 MG TABLET PO SCH ×2 (08:54→21:03)
[2018-03-10] MEDS: AMIODARONE 200 MG TABLET PO SCH (08:54)
[2018-03-10] MEDS: CALCIUM (CARBONATE) 600 MG TABLET PO SCH ×2 (08:54→21:04)
[2018-03-10] MEDS: CARVEDILOL 12.5 MG TABLET PO SCH ×2 (08:54→17:09)
[2018-03-10] MEDS: CALCIUM (CITRATE)/VITAMIN D 200 MG-125 UNIT TABLET PO SCH ×2 (08:54→21:03)
[2018-03-10] MEDS ORDERED: KETOROLAC 15 MG/1 ML VIAL IV ONE (10:00)
[2018-03-10] MEDS: WARFARIN 5 MG TABLET PO SCH (17:09)
[2018-03-10] MEDS: ATORVASTATIN 10 MG TABLET PO SCH (21:03)
[2018-03-10] MEDS: ZALEPLON 5 MG CAPSULE PO SCH (21:03)
[2018-03-10] MEDS: SELENIUM 200 MCG TABLET PO SCH (21:04)
[2018-03-11] MEDS: DOCUSATE SODIUM 100 MG CAPSULE PO SCH ×2 (10:32→20:51)
[2018-03-11] MEDS: CALCIUM (CARBONATE) 600 MG TABLET PO SCH ×2 (10:32→20:49)
[2018-03-11] MEDS: ASCORBIC ACID 500 MG TABLET PO SCH ×2 (10:32→20:54)
[2018-03-11] MEDS: CARVEDILOL 12.5 MG TABLET PO SCH ×2 (10:32→18:08)
[2018-03-11] MEDS: LISINOPRIL 20 MG TABLET PO SCH (10:32)
[2018-03-11] MEDS: AMIODARONE 200 MG TABLET PO SCH ×2 (10:32→20:48)
[2018-03-11] MEDS: CALCIUM (CITRATE)/VITAMIN D 200 MG-125 UNIT TABLET PO SCH ×2 (10:35→20:49)
[2018-03-11] MEDS ORDERED: MAGNESIUM HYDROXIDE SUSP 30 ML UDCUP PO PRN (13:33)
[2018-03-11] MEDS: WARFARIN 5 MG TABLET PO SCH (18:09)
[2018-03-11] MEDS: SELENIUM 200 MCG TABLET PO SCH (20:48)
[2018-03-11] MEDS: ATORVASTATIN 10 MG TABLET PO SCH (20:48)
[2018-03-11] MEDS: ZALEPLON 5 MG CAPSULE PO SCH (20:49)
[2018-03-12] MEDS: CALCIUM (CARBONATE) 600 MG TABLET PO SCH ×2 (08:31→21:26)
[2018-03-12] MEDS: DOCUSATE SODIUM 100 MG CAPSULE PO SCH ×2 (08:31→21:26)
[2018-03-12] MEDS: CALCIUM (CITRATE)/VITAMIN D 200 MG-125 UNIT TABLET PO SCH ×2 (08:31→21:27)
[2018-03-12] MEDS: ASCORBIC ACID 500 MG TABLET PO SCH ×2 (08:31→21:26)
[2018-03-12] MEDS: CARVEDILOL 12.5 MG TABLET PO SCH ×2 (08:31→18:13)
[2018-03-12] MEDS: AMIODARONE 200 MG TABLET PO SCH ×2 (08:31→21:26)
[2018-03-12] MEDS: LISINOPRIL 20 MG TABLET PO SCH (08:31)
[2018-03-12 10:23] LABS: Basophils % 0.6 % (0.0-0.8); Eosinophils # 0.2 10*3/uL (0.0-0.87); Eosinophils % 2.4 % (0.00-10.9); Hematocrit 35.6 VOL% (35.7-47.0); Hemoglobin 11.8 GM/DL (12.0-16.0); Immature Granulocytes % 0.6 %; Immature Granulocytes Absolute 0.04 #; Lymphocytes # 1.1 10*3/uL (1.4-4.0); Lymphocytes % 17.3 % (21.3-54.2); Mean Corpuscular HGB Conc 33.1 GM/DL (32-36); Mean Corpuscular Hemoglobin 33 PG (27-34); Mean Corpuscular Volume 100.6 FL (87-102); Mean Platelet Volume 10.4 FL (9.6-12.0); Monocytes # 0.5 10*3/uL (0.11-0.8); Monocytes % 8.7 % (1.7-12.7); Neutrophils # 4.4 10*3/uL (1.4-7.4); Neutrophils % 70.4 % (38.7-73.9); Platelet Count 229 T/CUMM (130-400); Red Blood Count 3.54 MC/CUMM (3.8-5.5); Red Cell Distribution Width 13.1 % (9.3-17.3); White Blood Count 6.2 T/CUMM (4-12)
[2018-03-12 10:48] LABS: Calcium 8.1 MG/DL (8.5-10.1); Osmolality,Calculated 281.5 MOS/KG (273-304); Potassium 4.5 MMOL/L (3.5-5.1)
[2018-03-12] MEDS: CIPROFLOXACIN 500 MG TABLET PO SCH ×2 (10:48→21:26)
[2018-03-12] MEDS ORDERED: WARFARIN 5 MG TABLET PO SCH (18:00)
[2018-03-12] MEDS: ATORVASTATIN 10 MG TABLET PO SCH (21:26)
[2018-03-12] MEDS: ZALEPLON 5 MG CAPSULE PO SCH (21:26)
[2018-03-12] MEDS: SELENIUM 200 MCG TABLET PO SCH (21:27)
[2018-03-13 07:58] LABS: Basophils # 0.1 10*3/uL (0.0-0.2); Basophils % 1.3 % (0.0-0.8); Eosinophils # 0.2 10*3/uL (0.0-0.87); Eosinophils % 4.8 % (0.00-10.9); Hematocrit 34.7 VOL% (35.7-47.0); Hemoglobin 11.5 GM/DL (12.0-16.0); Immature Granulocytes % 0.6 %; Immature Granulocytes Absolute 0.03 #; Lymphocytes # 1.3 10*3/uL (1.4-4.0); Lymphocytes % 26.5 % (21.3-54.2); Mean Corpuscular HGB Conc 33.1 GM/DL (32-36); Mean Corpuscular Hemoglobin 33 PG (27-34); Mean Platelet Volume 10.5 FL (9.6-12.0); Monocytes # 0.4 10*3/uL (0.11-0.8); Monocytes % 8.6 % (1.7-12.7); Neutrophils # 2.8 10*3/uL (1.4-7.4); Neutrophils % 58.2 % (38.7-73.9); Platelet Count 204 T/CUMM (130-400); Red Blood Count 3.54 MC/CUMM (3.8-5.5); Red Cell Distribution Width 13.2 % (9.3-17.3); White Blood Count 4.8 T/CUMM (4-12)
[2018-03-13 08:05] LABS: INR 1.4; PT Patient Result 14.8 SECS
[2018-03-13] MEDS ORDERED: KETOROLAC 30 MG/1 ML VIAL IM ONE ×2 (08:25→22:00)
[2018-03-13] MEDS: CALCIUM (CARBONATE) 600 MG TABLET PO SCH ×2 (10:10→22:08)
[2018-03-13] MEDS: CIPROFLOXACIN 500 MG TABLET PO SCH ×2 (10:10→22:08)
[2018-03-13] MEDS: CARVEDILOL 12.5 MG TABLET PO SCH ×2 (10:10→18:24)
[2018-03-13] MEDS: DOCUSATE SODIUM 100 MG CAPSULE PO SCH ×2 (10:11→22:08)
[2018-03-13] MEDS: LISINOPRIL 20 MG TABLET PO SCH (10:11)
[2018-03-13] MEDS: ASCORBIC ACID 500 MG TABLET PO SCH ×2 (10:11→22:08)
[2018-03-13] MEDS: AMIODARONE 200 MG TABLET PO SCH ×2 (10:11→22:07)
[2018-03-13] MEDS: CALCIUM (CITRATE)/VITAMIN D 200 MG-125 UNIT TABLET PO SCH ×2 (10:13→22:07)
[2018-03-13] MEDS: WARFARIN 5 MG TABLET PO SCH (18:24)
[2018-03-13] MEDS: SELENIUM 200 MCG TABLET PO SCH (22:07)
[2018-03-13] MEDS: ZALEPLON 5 MG CAPSULE PO SCH (22:07)
[2018-03-13] MEDS: ATORVASTATIN 10 MG TABLET PO SCH (22:09)
[2018-03-14] MEDS: LISINOPRIL 20 MG TABLET PO SCH (08:46)
[2018-03-14] MEDS: CARVEDILOL 12.5 MG TABLET PO SCH (08:46)
[2018-03-14] MEDS: AMIODARONE 200 MG TABLET PO SCH (08:46)
[2018-03-14] MEDS: DOCUSATE SODIUM 100 MG CAPSULE PO SCH (08:46)
[2018-03-14] MEDS: CALCIUM (CITRATE)/VITAMIN D 200 MG-125 UNIT TABLET PO SCH (08:47)
[2018-03-14] MEDS: CIPROFLOXACIN 500 MG TABLET PO SCH (08:47)
[2018-03-14] MEDS: ASCORBIC ACID 500 MG TABLET PO SCH (08:47)
[2018-03-14] MEDS: CALCIUM (CARBONATE) 600 MG TABLET PO SCH (08:48)
[2018-03-14 11:49] VITALS: BP 154/66
== END 2018-03-14 11:40 | disposition home health service (06) | DRG 536 ==
LOC: N.ED 13:02 → N.EDINP 15:25 → N.3E 16:16
PROVIDERS: ADMIT Family Medicine; ATTEND Family Medicine

== ENCOUNTER 2019-02-22 08:45 | Inpatient (IN) ==
[2019-02-22] MEDS ORDERED: ONDANSETRON 4 MG/2 ML VIAL IV PRN (09:39)
[2019-02-22] MEDS ORDERED: DOCUSATE SODIUM 100 MG CAPSULE PO PRN (09:39)
[2019-02-22] MEDS: SODIUM CHLORIDE 0.9% 1,000 ML IV SCH (12:44)
[2019-02-22 12:58] LABS: Basophils # 0.1 10*3/uL (0.0-0.2); Basophils % 0.8 % (0.0-0.8); Eosinophils # 0.1 10*3/uL (0.0-0.87); Eosinophils % 0.9 % (0.00-10.9); Hematocrit 29.5 VOL% (35.7-47.0); Hemoglobin 10.6 GM/DL (12.0-16.0); Immature Granulocytes % 1.4 %; Immature Granulocytes Absolute 0.12 #; Lymphocytes # 1.4 10*3/uL (1.4-4.0); Mean Corpuscular HGB Conc 35.9 GM/DL (32-36); Mean Corpuscular Volume 104.2 FL (87-102); Mean Platelet Volume 11.7 FL (9.6-12.0); Monocytes % 10.1 % (1.7-12.7); Neutrophils % 70.8 % (38.7-73.9); Platelet Count 175 T/CUMM (130-400); Red Blood Count 2.83 MC/CUMM (3.8-5.5); Red Cell Distribution Width 13.3 % (9.3-17.3); White Blood Count 8.8 T/CUMM (4-12)
[2019-02-22 13:18] LABS: Albumin 2.9 G/DL (3.4-5.0); Bilirubin,Total 0.6 MG/DL (0.2-1.0); Calcium 8.5 MG/DL (8.5-10.1); Osmolality,Calculated 286.3 MOS/KG (273-304); Total Protein 6.1 G/DL (6.4-8.3)
[2019-02-22] MEDS: AMPICILLIN/SULBACTAM 1,500 MG in SODIUM CHLORIDE 0.9% 100 ML IV SCH ×2 (13:35→18:20)
[2019-02-22] MEDS ORDERED: CARISOPRODOL 350 MG TABLET PO PRN (17:20)
[2019-02-22 17:30] LABS: INR 2.1
[2019-02-22] MEDS ORDERED: WARFARIN 5 MG TABLET PO SCH (18:00)
[2019-02-22 18:07] LABS: PT Patient Result 22.2 SECS
[2019-02-22] MEDS: CALCIUM (CARBONATE)/VITAMIN D 600 MG-400 UNIT TABLET PO SCH (22:21)
[2019-02-22] MEDS: CARVEDILOL 25 MG TABLET PO SCH (22:21)
[2019-02-22] MEDS: ZALEPLON 5 MG CAPSULE PO SCH (22:21)
[2019-02-22] MEDS: AMIODARONE 200 MG TABLET PO SCH (22:22)
[2019-02-22] MEDS: ATORVASTATIN 10 MG TABLET PO SCH (22:22)
[2019-02-23] MEDS: AMPICILLIN/SULBACTAM 1,500 MG in SODIUM CHLORIDE 0.9% 100 ML IV SCH ×4 (00:17→18:29)
[2019-02-23] MEDS: SODIUM CHLORIDE 0.9% 1,000 ML IV SCH ×4 (00:18→18:25)
[2019-02-23] MEDS ORDERED: PANTOPRAZOLE 40 MG TABLET PO SCH (09:00)
[2019-02-23] MEDS: LISINOPRIL 20 MG TABLET PO SCH (09:05)
[2019-02-23] MEDS: CETIRIZINE 10 MG TABLET PO SCH (09:05)
[2019-02-23] MEDS: CALCIUM (CARBONATE)/VITAMIN D 600 MG-400 UNIT TABLET PO SCH ×2 (09:05→21:44)
[2019-02-23] MEDS: CARVEDILOL 25 MG TABLET PO SCH ×2 (09:05→21:44)
[2019-02-23] MEDS: AMIODARONE 200 MG TABLET PO SCH ×2 (09:05→21:44)
[2019-02-23] MEDS: FUROSEMIDE 20 MG TABLET PO SCH (09:05)
[2019-02-23] MEDS: PANTOPRAZOLE 40 MG TABLET PO SCH (09:05)
[2019-02-23] MEDS: WARFARIN 5 MG TABLET PO SCH (18:28)
[2019-02-23] MEDS: ACETAMINOPHEN 325 MG TABLET PO PRN (18:31)
[2019-02-23] MEDS: ATORVASTATIN 10 MG TABLET PO SCH (21:44)
[2019-02-23] MEDS: ZALEPLON 5 MG CAPSULE PO SCH (21:44)
[2019-02-24] MEDS: AMPICILLIN/SULBACTAM 1,500 MG in SODIUM CHLORIDE 0.9% 100 ML IV SCH ×4 (00:45→18:10)
[2019-02-24] MEDS: ACETAMINOPHEN 325 MG TABLET PO PRN ×2 (00:47→19:32)
[2019-02-24] MEDS: SODIUM CHLORIDE 0.9% 1,000 ML IV SCH ×2 (03:05→15:33)
[2019-02-24 07:18] LABS: Basophils # 0.1 10*3/uL (0.0-0.2); Basophils % 1.9 % (0.0-0.8); Eosinophils # 0.4 10*3/uL (0.0-0.87); Eosinophils % 6.9 % (0.00-10.9); Hematocrit 27.3 VOL% (35.7-47.0); Hemoglobin 9.9 GM/DL (12.0-16.0); Immature Granulocytes % 2.7 %; Immature Granulocytes Absolute 0.16 #; Lymphocytes # 1.4 10*3/uL (1.4-4.0); Lymphocytes % 23.6 % (21.3-54.2); Mean Corpuscular HGB Conc 36.3 GM/DL (32-36); Mean Platelet Volume 11.9 FL (9.6-12.0); Monocytes % 9.8 % (1.7-12.7); NRBC # 0.02 10*3/uL; Neutrophils % 55.1 % (38.7-73.9); Platelet Count 168 T/CUMM (130-400); Red Cell Distribution Width 13.4 % (9.3-17.3); White Blood Count 5.9 T/CUMM (4-12)
[2019-02-24 07:34] LABS: Albumin 2.5 G/DL (3.4-5.0); Bilirubin,Direct 0.12 MG/DL (0.0-0.20); Bilirubin,Indirect 0.5 MG/DL (0.0-1.0); Bilirubin,Total 0.6 MG/DL (0.2-1.0); Total Protein 5.4 G/DL (6.4-8.3)
[2019-02-24 07:39] LABS: Calcium 7.9 MG/DL (8.5-10.1); Osmolality,Calculated 286.8 MOS/KG (273-304)
[2019-02-24] MEDS: PANTOPRAZOLE 40 MG TABLET PO SCH (08:02)
[2019-02-24] MEDS: CETIRIZINE 10 MG TABLET PO SCH (08:02)
[2019-02-24] MEDS: CALCIUM (CARBONATE)/VITAMIN D 600 MG-400 UNIT TABLET PO SCH ×2 (08:02→20:51)
[2019-02-24] MEDS: FUROSEMIDE 20 MG TABLET PO SCH (08:02)
[2019-02-24] MEDS: LISINOPRIL 20 MG TABLET PO SCH (08:02)
[2019-02-24] MEDS: AMIODARONE 200 MG TABLET PO SCH ×2 (08:02→20:52)
[2019-02-24] MEDS: CARVEDILOL 25 MG TABLET PO SCH ×2 (08:02→20:52)
[2019-02-24] MEDS: WARFARIN 5 MG TABLET PO SCH (18:10)
[2019-02-24] MEDS: ATORVASTATIN 10 MG TABLET PO SCH (20:52)
[2019-02-24] MEDS: ZALEPLON 5 MG CAPSULE PO SCH (20:52)
[2019-02-25] MEDS: AMPICILLIN/SULBACTAM 1,500 MG in SODIUM CHLORIDE 0.9% 100 ML IV SCH ×3 (00:23→12:52)
[2019-02-25 05:32] LABS: Basophils # 0.1 10*3/uL (0.0-0.2); Basophils % 1.5 % (0.0-0.8); Eosinophils # 0.4 10*3/uL (0.0-0.87); Hemoglobin 9.8 GM/DL (12.0-16.0); Immature Granulocytes Absolute 0.11 #; Lymphocytes # 1.6 10*3/uL (1.4-4.0); Lymphocytes % 29.2 % (21.3-54.2); Mean Corpuscular HGB Conc 33.8 GM/DL (32-36); Mean Corpuscular Volume 105.5 FL (87-102); Mean Platelet Volume 11.4 FL (9.6-12.0); Monocytes % 8.6 % (1.7-12.7); Neutrophils % 50.7 % (38.7-73.9); Platelet Count 190 T/CUMM (130-400); Red Blood Count 2.75 MC/CUMM (3.8-5.5); Red Cell Distribution Width 13.4 % (9.3-17.3); White Blood Count 5.4 T/CUMM (4-12)
[2019-02-25 06:18] LABS: Alanine Aminotransferase 105 U/L (13-56); Albumin 2.4 G/DL (3.4-5.0); Alkaline Phosphatase 94 U/L (45-117); Aspartate Amino Transferase 90 U/L (0-37); Bilirubin,Total < 0.39 MG/DL (0.2-1.0); Blood Urea Nitrogen 13 MG/DL (7-18); Calcium 7.7 MG/DL (8.5-10.1); Glucose 94 MG/DL (74-106); HDL Cholesterol 47 MG/DL (40-60); Osmolality,Calculated 287.7 MOS/KG (273-304); Risk Ratio 2.77; Total Protein 5.3 G/DL (6.4-8.3); Triglycerides 59 MG/DL (2-150); VLDL CHOLESTEROL 11.8 MG/DL
[2019-02-25 06:54] LABS: Hepatitis B Core IgM Quant < 0.05 Index; Hepatitis B Surface Ag Quant < 0.10 Index; Hepatitis B Surface Ag Result Negative (Negative); Hepatitis C Virus Ab Quant 0.04 Index; Hepatitis C Virus Ab Result Negative (Negative)
[2019-02-25] MEDS ORDERED: CYANOCOBALAMIN 1000 MCG/1 ML VIAL IM ONE (08:36)
[2019-02-25] MEDS: LISINOPRIL 20 MG TABLET PO SCH (09:19)
[2019-02-25] MEDS: AMIODARONE 200 MG TABLET PO SCH (09:20)
[2019-02-25] MEDS: FUROSEMIDE 20 MG TABLET PO SCH (09:20)
[2019-02-25] MEDS: CALCIUM (CARBONATE)/VITAMIN D 600 MG-400 UNIT TABLET PO SCH (09:20)
[2019-02-25] MEDS: CETIRIZINE 10 MG TABLET PO SCH (09:20)
[2019-02-25] MEDS: CARVEDILOL 25 MG TABLET PO SCH (09:20)
[2019-02-25] MEDS: PANTOPRAZOLE 40 MG TABLET PO SCH (09:31)
[2019-02-25 12:36] VITALS: BP 136/61
== END 2019-02-25 12:15 | disposition home or self-care (01) | DRG 603 ==
LOC: N.ADMINP 10:24
PROVIDERS: ADMIT Family Medicine; ATTEND Family Medicine

== ENCOUNTER 2019-06-25 05:36 | Inpatient (IN) ==
[2019-06-25 06:24] LABS: PT Patient Result 10.6 SECS (9.6-12.2); Partial Thromboplastin Time 24.5 SECS (20.8-36.0)
[2019-06-25] MEDS ORDERED: VANCOMYCIN INJ 1,000 MG in SODIUM CHLORIDE 0.9% 250 ML IV ONE (06:30)
[2019-06-25] MEDS ORDERED: ceFAZolin 1,000 MG in SYRINGE 1 EACH IV ONE ×2 (06:30→13:31)
[2019-06-25] MEDS ORDERED: VANCOMYCIN 1,000 MG VIAL ONE (06:59)
[2019-06-25] MEDS ORDERED: ceFAZolin 1,000 MG VIAL ONE (06:59)
[2019-06-25] MEDS ORDERED: ROPIVACAINE 0.5% 30 ML VIAL ONE (07:38)
[2019-06-25] MEDS ORDERED: EPINEPHrine 1 MG/ML VIAL ONE (07:38)
[2019-06-25] MEDS ORDERED: DEXAMETHASONE 4 MG/1 ML VIAL ONE (07:38)
[2019-06-25] MEDS ORDERED: fentaNYL 100 MCG/2 ML VIAL ONE ×2 (07:39→12:01)
[2019-06-25] MEDS ORDERED: MIDAZOLAM 2 MG/2 ML VIAL ONE (07:39)
[2019-06-25] MEDS ORDERED: FAMOTIDINE 20 MG TABLET PO STA (07:56)
[2019-06-25] MEDS ORDERED: FAMOTIDINE 20 MG TABLET ONE (08:21)
[2019-06-25] MEDS: LACTATED RINGERS 1,000 ML IV SCH ×4 (08:29→21:46)
[2019-06-25] MEDS ORDERED: TRANEXAMIC ACID 1,000 MG/10 ML VIAL ONE (08:49)
[2019-06-25] MEDS ORDERED: CETIRIZINE 10 MG TABLET PO PRN (11:46)
[2019-06-25] MEDS ORDERED: oxyCODONE IR 5 MG TABLET PO PRN ×2 (11:50)
[2019-06-25] MEDS ORDERED: MORPHINE 4 MG/1 ML VIAL IV PRN ×2 (11:50)
[2019-06-25] MEDS ORDERED: MAGNESIUM HYDROXIDE SUSP 30 ML UDCUP PO PRN (11:50)
[2019-06-25] MEDS ORDERED: SELENIUM 200 MCG TABLET PO SCH (12:00)
[2019-06-25] MEDS ORDERED: CYANOCOBALAMIN 1000 MCG/1 ML VIAL IM SCH (12:00)
[2019-06-25] MEDS ORDERED: ePHEDrine 50 MG/ML AMP ONE (12:01)
[2019-06-25] MEDS ORDERED: BUPIVACAINE SPINAL 0.75% 2 ML AMP SPINAL ONE (12:01)
[2019-06-25] MEDS ORDERED: PROPOFOL 200 MG/20 ML VIAL IV ONE (12:01)
[2019-06-25] MEDS ORDERED: SODIUM CHLORIDE 0.9% 100 ML IV ONE (12:01)
[2019-06-25] MEDS: KETOROLAC 15 MG/1 ML VIAL IV SCH ×2 (15:03→22:03)
[2019-06-25] MEDS ORDERED: ceFAZolin 1,000 MG in SYRINGE 1 EACH IV SCH (15:51)
[2019-06-25 17:35] LABS: Calcium 7.4 MG/DL (8.5-10.1)
[2019-06-25] MEDS: WARFARIN 2.5 MG TABLET PO SCH (18:32)
[2019-06-25] MEDS: ceFAZolin 2,000 MG in PREMIX 1 EACH IV SCH (18:32)
[2019-06-25] MEDS ORDERED: ALBUTEROL 2.5 MG/3 ML NEB RESP TX PRN (19:00)
[2019-06-25] MEDS ORDERED: HydrOXYzine PAMOATE 25 MG CAPSULE PO PRN (19:29)
[2019-06-25] MEDS ORDERED: GENTAMICIN INJ 330 MG in SODIUM CHLORIDE 0.9% 100 ML IV SCH (20:00)
[2019-06-25] MEDS: AZELASTINE NASAL 137 MCG/SPRAY 30 ML BOTTLE BOTH NARES SCH (22:03)
[2019-06-25] MEDS: TRIAMCINOLONE 0.1% CREAM 15 GM TUBE TOP SCH (22:03)
[2019-06-25] MEDS: AMIODARONE 200 MG TABLET PO SCH (22:04)
[2019-06-25] MEDS: ZALEPLON 5 MG CAPSULE PO SCH (22:04)
[2019-06-25] MEDS: CARVEDILOL 25 MG TABLET PO SCH (22:04)
[2019-06-25] MEDS: MONTELUKAST 10 MG TABLET PO SCH (22:04)
[2019-06-25] MEDS: ASCORBIC ACID 500 MG TABLET PO SCH (22:04)
[2019-06-25] MEDS: ATORVASTATIN 10 MG TABLET PO SCH (22:04)
[2019-06-25] MEDS: DOCUSATE SODIUM 100 MG CAPSULE PO SCH (22:04)
[2019-06-25] MEDS: DONEPEZIL 5 MG TABLET PO SCH (22:04)
[2019-06-25] MEDS: hydrOXYzine HCL 25 MG TABLET PO SCH (22:04)
[2019-06-26] MEDS: diphenhydrAMINE CAP 25 MG CAPSULE PO PRN (03:43)
[2019-06-26] MEDS: KETOROLAC 15 MG/1 ML VIAL IV SCH ×2 (03:44→09:15)
[2019-06-26] MEDS: ceFAZolin 2,000 MG in PREMIX 1 EACH IV SCH ×3 (03:44→17:50)
[2019-06-26 05:55] LABS: Basophils # 0.1 10*3/uL (0.0-0.2); Basophils % 0.6 % (0.0-0.8); Eosinophils % 0.5 % (0.00-10.9); Hematocrit 27.7 VOL% (35.7-47.0); Hemoglobin 9.4 GM/DL (12.0-16.0); Immature Granulocytes % 1.2 %; Lymphocytes % 11.2 % (21.3-54.2); Mean Corpuscular HGB Conc 33.9 GM/DL (32-36); Mean Corpuscular Volume 104.5 FL (87-102); Mean Platelet Volume 11.7 FL (9.6-12.0); Monocytes % 11.1 % (1.7-12.7); Neutrophils % 75.4 % (38.7-73.9); Platelet Count 159 T/CUMM (130-400); Red Blood Count 2.65 MC/CUMM (3.8-5.5); White Blood Count 8.5 T/CUMM (4-12)
[2019-06-26 06:26] LABS: PT Patient Result 10.9 SECS (9.6-12.2)
[2019-06-26 06:31] LABS: Calcium 7.4 MG/DL (8.5-10.1)
[2019-06-26] MEDS: LACTATED RINGERS 1,000 ML IV SCH ×2 (06:48→21:16)
[2019-06-26] MEDS: LISINOPRIL 20 MG TABLET PO SCH (09:10)
[2019-06-26] MEDS: MULTIVITAMIN (CENTRUM) TABLET PO SCH (09:10)
[2019-06-26] MEDS: ASCORBIC ACID 500 MG TABLET PO SCH ×2 (09:10→21:16)
[2019-06-26] MEDS: hydrOXYzine HCL 25 MG TABLET PO SCH ×2 (09:11→21:17)
[2019-06-26] MEDS: AMIODARONE 200 MG TABLET PO SCH ×2 (09:11→21:16)
[2019-06-26] MEDS: TRIAMCINOLONE 0.1% CREAM 15 GM TUBE TOP SCH ×2 (09:13→21:18)
[2019-06-26] MEDS: CALCIUM (CARBONATE)/VITAMIN D 600 MG-400 UNIT TABLET PO SCH ×2 (09:13→21:17)
[2019-06-26] MEDS: CARVEDILOL 25 MG TABLET PO SCH ×2 (09:13→21:17)
[2019-06-26] MEDS: DOCUSATE SODIUM 100 MG CAPSULE PO SCH ×2 (09:13→21:16)
[2019-06-26] MEDS: PANTOPRAZOLE 40 MG TABLET PO SCH (09:13)
[2019-06-26] MEDS: AZELASTINE NASAL 137 MCG/SPRAY 30 ML BOTTLE BOTH NARES SCH ×2 (09:14→21:17)
[2019-06-26] MEDS ORDERED: KETOROLAC 15 MG/1 ML VIAL IV SCH (09:30)
[2019-06-26] MEDS ORDERED: FUROSEMIDE 20 MG TABLET PO SCH (11:46)
[2019-06-26] MEDS ORDERED: ACETAMINOPHEN 325 MG TABLET PO PRN (11:51)
[2019-06-26] MEDS ORDERED: TUBERCULIN SKIN TEST 0.1 ML SYRINGE INTRADERM ONE (12:34)
[2019-06-26] MEDS: WARFARIN 2.5 MG TABLET PO SCH (17:50)
[2019-06-26] MEDS: ONDANSETRON 4 MG/2 ML VIAL IV PRN (19:01)
[2019-06-26] MEDS ORDERED: GENTAMICIN INJ 330 MG in SODIUM CHLORIDE 0.9% 100 ML IV SCH (21:00)
[2019-06-26] MEDS: MONTELUKAST 10 MG TABLET PO SCH (21:17)
[2019-06-26] MEDS: ATORVASTATIN 10 MG TABLET PO SCH (21:17)
[2019-06-26] MEDS: DONEPEZIL 5 MG TABLET PO SCH (21:17)
[2019-06-26] MEDS: ZALEPLON 5 MG CAPSULE PO SCH (21:26)
[2019-06-27] MEDS: ceFAZolin 2,000 MG in PREMIX 1 EACH IV SCH ×3 (02:34→17:47)
[2019-06-27 06:07] LABS: Basophils # 0.1 10*3/uL (0.0-0.2); Basophils % 0.9 % (0.0-0.8); Eosinophils # 0.8 10*3/uL (0.0-0.87); Eosinophils % 7.4 % (0.00-10.9); Hematocrit 28.1 VOL% (35.7-47.0); Hemoglobin 9.5 GM/DL (12.0-16.0); Immature Granulocytes % 0.7 %; Immature Granulocytes Absolute 0.07 #; Lymphocytes % 10.2 % (21.3-54.2); Mean Corpuscular HGB Conc 33.8 GM/DL (32-36); Mean Corpuscular Volume 106.8 FL (87-102); Mean Platelet Volume 11.6 FL (9.6-12.0); Monocytes % 9.2 % (1.7-12.7); Neutrophils % 71.6 % (38.7-73.9); Platelet Count 160 T/CUMM (130-400); Red Blood Count 2.63 MC/CUMM (3.8-5.5); Red Cell Distribution Width 15.1 % (9.3-17.3); White Blood Count 10.1 T/CUMM (4-12)
[2019-06-27 06:10] LABS: PT Patient Result 11.3 SECS (9.6-12.2)
[2019-06-27] MEDS: LACTATED RINGERS 1,000 ML IV SCH (06:18)
[2019-06-27] MEDS ORDERED: FUROSEMIDE 20 MG TABLET PO SCH (09:00)
[2019-06-27] MEDS: MULTIVITAMIN (CENTRUM) TABLET PO SCH (09:56)
[2019-06-27] MEDS: hydrOXYzine HCL 25 MG TABLET PO SCH ×2 (09:56→20:46)
[2019-06-27] MEDS: LISINOPRIL 20 MG TABLET PO SCH (09:56)
[2019-06-27] MEDS: AMIODARONE 200 MG TABLET PO SCH ×2 (09:56→20:46)
[2019-06-27] MEDS: CALCIUM (CARBONATE)/VITAMIN D 600 MG-400 UNIT TABLET PO SCH ×2 (09:56→20:46)
[2019-06-27] MEDS: DOCUSATE SODIUM 100 MG CAPSULE PO SCH ×2 (09:57→20:46)
[2019-06-27] MEDS: PANTOPRAZOLE 40 MG TABLET PO SCH (09:57)
[2019-06-27] MEDS: CARVEDILOL 25 MG TABLET PO SCH ×2 (09:57→20:46)
[2019-06-27] MEDS: ASCORBIC ACID 500 MG TABLET PO SCH ×2 (09:57→20:46)
[2019-06-27] MEDS: TRIAMCINOLONE 0.1% CREAM 15 GM TUBE TOP SCH ×2 (09:59→20:47)
[2019-06-27] MEDS: AZELASTINE NASAL 137 MCG/SPRAY 30 ML BOTTLE BOTH NARES SCH ×2 (09:59→20:47)
[2019-06-27] MEDS: ONDANSETRON 4 MG/2 ML VIAL IV PRN ×2 (11:30→17:15)
[2019-06-27] MEDS: diphenhydrAMINE CAP 25 MG CAPSULE PO PRN (12:05)
[2019-06-27] MEDS ORDERED: WARFARIN 2.5 MG TABLET PO ONE (12:50)
[2019-06-27] MEDS: WARFARIN 2.5 MG TABLET PO SCH (17:16)
[2019-06-27] MEDS: ZALEPLON 5 MG CAPSULE PO SCH (20:46)
[2019-06-27] MEDS: DONEPEZIL 5 MG TABLET PO SCH (20:46)
[2019-06-27] MEDS: MONTELUKAST 10 MG TABLET PO SCH (20:46)
[2019-06-27] MEDS: ATORVASTATIN 10 MG TABLET PO SCH (20:47)
[2019-06-28] MEDS: ceFAZolin 2,000 MG in PREMIX 1 EACH IV SCH ×2 (02:45→11:12)
[2019-06-28 05:50] LABS: INR 1.1; PT Patient Result 11.4 SECS (9.6-12.2)
[2019-06-28 05:55] LABS: Basophils # 0.1 10*3/uL (0.0-0.2); Basophils % 0.6 % (0.0-0.8); Eosinophils # 0.9 10*3/uL (0.0-0.87); Eosinophils % 11.5 % (0.00-10.9); Hematocrit 26.4 VOL% (35.7-47.0); Hemoglobin 9.3 GM/DL (12.0-16.0); Immature Granulocytes % 1.1 %; Immature Granulocytes Absolute 0.09 #; Lymphocytes # 1.1 10*3/uL (1.4-4.0); Lymphocytes % 13.2 % (21.3-54.2); Mean Corpuscular HGB Conc 35.2 GM/DL (32-36); Mean Corpuscular Volume 106.5 FL (87-102); Mean Platelet Volume 12.5 FL (9.6-12.0); NRBC # 0.02 10*3/uL; Neutrophils % 64.6 % (38.7-73.9); Platelet Count 157 T/CUMM (130-400); Red Blood Count 2.48 MC/CUMM (3.8-5.5); Red Cell Distribution Width 14.9 % (9.3-17.3)
[2019-06-28 06:16] LABS: Eosinophils 7 % (0-10); Hypochromasia 1+; Lymphocytes 11 % (20-55); Platelet Estimate Adequate; Segmented Neutrophils 72 % (50-85); Total Cells Counted 100
[2019-06-28] MEDS: AZELASTINE NASAL 137 MCG/SPRAY 30 ML BOTTLE BOTH NARES SCH (08:00)
[2019-06-28] MEDS: TRIAMCINOLONE 0.1% CREAM 15 GM TUBE TOP SCH (08:00)
[2019-06-28] MEDS ORDERED: SULFAMETHOX/TRIMETHOPRIM 800-160 MG TABLET PO SCH (09:00)
[2019-06-28] MEDS ORDERED: GENTAMICIN INJ 330 MG in SODIUM CHLORIDE 0.9% 100 ML IV SCH (09:00)
[2019-06-28] MEDS: CALCIUM (CARBONATE)/VITAMIN D 600 MG-400 UNIT TABLET PO SCH (10:19)
[2019-06-28] MEDS: hydrOXYzine HCL 25 MG TABLET PO SCH (10:19)
[2019-06-28] MEDS: LISINOPRIL 20 MG TABLET PO SCH (10:19)
[2019-06-28] MEDS: AMIODARONE 200 MG TABLET PO SCH (10:20)
[2019-06-28] MEDS: PANTOPRAZOLE 40 MG TABLET PO SCH (10:20)
[2019-06-28] MEDS: DOCUSATE SODIUM 100 MG CAPSULE PO SCH (10:20)
[2019-06-28] MEDS: CARVEDILOL 25 MG TABLET PO SCH (10:20)
[2019-06-28] MEDS: ASCORBIC ACID 500 MG TABLET PO SCH (10:20)
[2019-06-28] MEDS: MULTIVITAMIN (CENTRUM) TABLET PO SCH (10:20)
[2019-06-28 11:47] VITALS: BP 148/70
== END 2019-06-28 13:12 | disposition swing bed (61) | DRG 470 ==
LOC: N.OR 05:36 → N.SDSINP 05:36 → N.3E 13:22
PROVIDERS: ADMIT Orthopaedic Surgery; ATTEND Orthopaedic Surgery

== ENCOUNTER 2019-07-08 15:39 | Inpatient (IN) ==
[2019-07-08] MEDS ORDERED: SODIUM CHLORIDE 0.9% 1,000 ML IV STA (16:14)
[2019-07-08 17:20] LABS: INR 2.5; Partial Thromboplastin Time 33.6 SECS (20.8-36.0)
[2019-07-08 17:46] LABS: Albumin 2.3 G/DL (3.4-5.0); Bilirubin,Total 0.8 MG/DL (0.2-1.0); Calcium 7.3 MG/DL (8.5-10.1); Osmolality,Calculated 284.7 MOS/KG (273-304); Total Protein 5.6 G/DL (6.4-8.3)
[2019-07-08 17:52] LABS: PT Patient Result 27.4 SECS (9.6-12.2)
[2019-07-08 18:07] LABS: Apearance,Urine Slightly Hazy (Clear); Bilirubin,Urine Negative (Negative); Blood, Urine Negative (Negative); Glucose,Urine (UA) Negative (Negative); Ketones,Urine Negative (Negative); Nitrite,Urine Negative (Negative); Protein,Urine 5 MG/DL; Urine Color Amber (Yellow); Urine Specific Gravity 1.015 (1.001-1.035); Urine Urobilinogen 0.2 EU/DL (0.2-1.0)
[2019-07-08 18:08] LABS: RBC,Urine Occasional /HPF (0-4); Squamous Epithelial Cell,Urine 1+ /HPF (0-10); Transitional Epi Cells,Urine None Seen /HPF (<1); WBC,Urine Negative /HPF (0-6)
[2019-07-08] MEDS ORDERED: ACETAMINOPHEN 325 MG TABLET PO PRN (19:57)
[2019-07-08 20:29] LABS: Hepatitis B Surface Ag Quant < 0.10 Index; Hepatitis B Surface Ag Result Negative (Negative); Hepatitis C Virus Ab Quant 0.05 Index; Hepatitis C Virus Ab Result Negative (Negative)
[2019-07-08] MEDS: SODIUM CHLORIDE 0.9% 1,000 ML IV SCH (20:48)
[2019-07-08] MEDS: ONDANSETRON 4 MG/2 ML VIAL IV PRN (20:52)
[2019-07-08] MEDS: DOCUSATE SODIUM 100 MG CAPSULE PO SCH (20:53)
[2019-07-08] MEDS: ZALEPLON 5 MG CAPSULE PO PRN (22:27)
[2019-07-08] MEDS: diphenhydrAMINE CAP 25 MG CAPSULE PO PRN (22:27)
[2019-07-09 05:53] LABS: Albumin 1.9 G/DL (3.4-5.0); Bilirubin,Total 0.9 MG/DL (0.2-1.0); Calcium 6.9 MG/DL (8.5-10.1); Osmolality,Calculated 285.5 MOS/KG (273-304); Total Protein 4.6 G/DL (6.4-8.3)
[2019-07-09 06:16] LABS: Basophils % 0.5 % (0.0-0.8); Eosinophils # 0.3 10*3/uL (0.0-0.87); Eosinophils % 4.2 % (0.00-10.9); Hematocrit 25.3 VOL% (35.7-47.0); Immature Granulocytes % 1.1 %; Immature Granulocytes Absolute 0.09 #; Lymphocytes # 0.7 10*3/uL (1.4-4.0); Lymphocytes % 8.6 % (21.3-54.2); Mean Corpuscular HGB Conc 31.6 GM/DL (32-36); Mean Corpuscular Volume 101.2 FL (87-102); Mean Platelet Volume 10.9 FL (9.6-12.0); Monocytes % 7.3 % (1.7-12.7); Neutrophils % 78.3 % (38.7-73.9); Platelet Count 288 T/CUMM (130-400); Red Cell Distribution Width 14.7 % (9.3-17.3); White Blood Count 7.9 T/CUMM (4-12)
[2019-07-09] MEDS ORDERED: CETIRIZINE 10 MG TABLET PO PRN (06:51)
[2019-07-09] MEDS ORDERED: CROTAMITON TOP ONE (08:30)
[2019-07-09] MEDS: SODIUM CHLORIDE 0.9% 1,000 ML IV SCH ×2 (09:30→13:05)
[2019-07-09] MEDS: AZELASTINE NASAL 137 MCG/SPRAY 30 ML BOTTLE BOTH NARES SCH ×2 (09:33→21:12)
[2019-07-09] MEDS: hydrOXYzine HCL 25 MG TABLET PO SCH ×2 (09:34→21:12)
[2019-07-09] MEDS: CALCIUM (CARBONATE)/VITAMIN D 600 MG-400 UNIT TABLET PO SCH (09:34)
[2019-07-09] MEDS: TRIAMCINOLONE 0.1% CREAM 15 GM TUBE TOP SCH ×2 (09:34→21:12)
[2019-07-09] MEDS: PANTOPRAZOLE 40 MG TABLET PO SCH (09:34)
[2019-07-09] MEDS: DOCUSATE SODIUM 100 MG CAPSULE PO SCH ×2 (09:34→21:13)
[2019-07-09] MEDS: carvediloL 25 MG TABLET PO SCH ×2 (09:34→21:13)
[2019-07-09] MEDS: PERMETHRIN 5% CREAM 60 GM TUBE TOP ONE ×2 (09:35→09:43)
[2019-07-09] MEDS: ALBUTEROL 2.5 MG/3 ML NEB RESP TX PRN ×3 (09:55→21:30)
[2019-07-09 12:19] LABS: Basophils # 0.1 10*3/uL (0.0-0.2); Basophils % 0.6 % (0.0-0.8); Eosinophils # 0.3 10*3/uL (0.0-0.87); Eosinophils % 3.3 % (0.00-10.9); Hematocrit 26.9 VOL% (35.7-47.0); Hemoglobin 8.5 GM/DL (12.0-16.0); Immature Granulocytes % 0.9 %; Immature Granulocytes Absolute 0.08 #; Lymphocytes # 0.7 10*3/uL (1.4-4.0); Lymphocytes % 7.8 % (21.3-54.2); Mean Corpuscular HGB Conc 31.6 GM/DL (32-36); Mean Corpuscular Volume 102.7 FL (87-102); Mean Platelet Volume 10.3 FL (9.6-12.0); Monocytes % 6.8 % (1.7-12.7); Neutrophils % 80.6 % (38.7-73.9); Platelet Count 302 T/CUMM (130-400); Red Blood Count 2.62 MC/CUMM (3.8-5.5); Red Cell Distribution Width 14.7 % (9.3-17.3); White Blood Count 8.7 T/CUMM (4-12)
[2019-07-09 12:50] LABS: Folate 13.7 NG/ML (5.4-24.0); Vitamin B12 1377 PG/ML (211-911)
[2019-07-09 13:25] LABS: Sedimentation Rate-Westergren 86 MM/HR (0-30)
[2019-07-09] MEDS: ONDANSETRON 4 MG/2 ML VIAL IV PRN (18:26)
[2019-07-09] MEDS: diphenhydrAMINE CAP 25 MG CAPSULE PO PRN (18:33)
[2019-07-09] MEDS: ZALEPLON 5 MG CAPSULE PO PRN (21:12)
[2019-07-09] MEDS: ACETAMINOPHEN 325 MG TABLET PO PRN (21:13)
[2019-07-10] MEDS: SODIUM CHLORIDE 0.9% 1,000 ML IV SCH ×2 (01:40→20:56)
[2019-07-10 05:11] LABS: Basophils # 0.1 10*3/uL (0.0-0.2); Basophils % 0.7 % (0.0-0.8); Eosinophils # 0.3 10*3/uL (0.0-0.87); Eosinophils % 4.4 % (0.00-10.9); Hematocrit 20.3 VOL% (35.7-47.0); Hemoglobin 7.8 GM/DL (12.0-16.0); Immature Granulocytes % 1.6 %; Immature Granulocytes Absolute 0.11 #; Lymphocytes # 0.7 10*3/uL (1.4-4.0); Mean Corpuscular HGB Conc 38.4 GM/DL (32-36); Mean Platelet Volume 10.7 FL (9.6-12.0); Monocytes % 8.3 % (1.7-12.7); Platelet Count 266 T/CUMM (130-400); Red Blood Count 1.75 MC/CUMM (3.8-5.5); White Blood Count 7.1 T/CUMM (4-12)
[2019-07-10 05:15] LABS: Albumin 1.8 G/DL (3.4-5.0); Bilirubin,Total 0.8 MG/DL (0.2-1.0); Calcium 6.9 MG/DL (8.5-10.1); Osmolality,Calculated 288.3 MOS/KG (273-304); Total Protein 4.6 G/DL (6.4-8.3)
[2019-07-10 05:31] LABS: Hypochromasia 1+; Ovalocytes Slight; Platelet Estimate Adequate
[2019-07-10] MEDS ORDERED: SODIUM CHLORIDE 0.9% 1,000 ML IV PRN (07:52)
[2019-07-10] MEDS ORDERED: SKIN HEALING OINT (AQUAPHOR) 50 GM TUBE TOP SCH (08:30)
[2019-07-10] MEDS: ALBUTEROL/IPRATROPIUM 3 ML NEB RESP TX SCH ×2 (08:42→19:25)
[2019-07-10 08:47] LABS: INR 2.4
[2019-07-10 08:49] LABS: PT Patient Result 25.9 SECS (9.6-12.2)
[2019-07-10 10:09] LABS: Hemoglobin A1 (Alkaline) 97.3 % (96.5-98.5); Hemoglobin A2 (Alkaline) 2.7 % (1.5-3.5)
[2019-07-10] MEDS: carvediloL 25 MG TABLET PO SCH ×2 (10:29→20:48)
[2019-07-10] MEDS: AZELASTINE NASAL 137 MCG/SPRAY 30 ML BOTTLE BOTH NARES SCH ×2 (10:29→20:48)
[2019-07-10] MEDS: CALCIUM (CARBONATE)/VITAMIN D 600 MG-400 UNIT TABLET PO SCH (10:29)
[2019-07-10] MEDS: PANTOPRAZOLE 40 MG TABLET PO SCH (10:29)
[2019-07-10] MEDS: ASPIRIN EC 81 MG TABLET PO SCH (10:29)
[2019-07-10] MEDS: hydrOXYzine HCL 25 MG TABLET PO SCH ×2 (10:29→20:48)
[2019-07-10] MEDS: TRIAMCINOLONE 0.1% CREAM 15 GM TUBE TOP SCH ×2 (10:30→20:49)
[2019-07-10] MEDS: DOCUSATE SODIUM 100 MG CAPSULE PO SCH ×2 (10:30→20:42)
[2019-07-10] MEDS: diphenhydrAMINE CAP 25 MG CAPSULE PO PRN ×2 (11:13→23:52)
[2019-07-10] MEDS: ACETAMINOPHEN 325 MG TABLET PO PRN ×2 (11:14→20:57)
[2019-07-10 15:05] LABS: Creatinine,Urine Random 92 MG/DL; Total Protein,Urine Random 61 MG/DL; Urea Nitrogen, Urine Random 586 MG/DL
[2019-07-10] MEDS: ONDANSETRON 4 MG/2 ML VIAL IV PRN (17:14)
[2019-07-10] MEDS: ZALEPLON 5 MG CAPSULE PO PRN (20:48)
[2019-07-11] MEDS: ALBUTEROL 2.5 MG/3 ML NEB RESP TX PRN ×2 (01:45→16:44)
[2019-07-11] MEDS ORDERED: FUROSEMIDE 20 MG/2 ML VIAL IV ONE (02:15)
[2019-07-11] MEDS ORDERED: methylPREDNISolone SOD SUC 40 MG/1 ML VIAL IV ONE (02:15)
[2019-07-11] MEDS: ALBUTEROL/IPRATROPIUM 3 ML NEB RESP TX SCH ×2 (02:54→07:17)
[2019-07-11 06:36] LABS: Basophils % 0.4 % (0.0-0.8); Eosinophils # 0.1 10*3/uL (0.0-0.87); Eosinophils % 0.8 % (0.00-10.9); Hematocrit 32.2 VOL% (35.7-47.0); Immature Granulocytes % 1.4 %; Immature Granulocytes Absolute 0.14 #; Lymphocytes # 0.4 10*3/uL (1.4-4.0); Lymphocytes % 4.6 % (21.3-54.2); Mean Corpuscular HGB Conc 36.3 GM/DL (32-36); Mean Corpuscular Volume 101.9 FL (87-102); Mean Platelet Volume 10.4 FL (9.6-12.0); Monocytes % 2.7 % (1.7-12.7); Neutrophils % 90.1 % (38.7-73.9); Platelet Count 312 T/CUMM (130-400); Red Cell Distribution Width 18.2 % (9.3-17.3); White Blood Count 9.7 T/CUMM (4-12)
[2019-07-11 06:38] LABS: Hemoglobin 11.7 GM/DL (12.0-16.0); Red Blood Count 3.16 MC/CUMM (3.8-5.5)
[2019-07-11 06:55] LABS: Albumin 2.2 G/DL (3.4-5.0); Bilirubin,Total 0.9 MG/DL (0.2-1.0); Calcium 7.4 MG/DL (8.5-10.1); Osmolality,Calculated 287.4 MOS/KG (273-304); Total Protein 5.7 G/DL (6.4-8.3)
[2019-07-11 06:56] LABS: Anisocytosis 2+; Eosinophils 1 % (0-10); Lymphocytes 4 % (20-55); Macrocytosis 2+; Platelet Estimate Normal; Segmented Neutrophils 92 % (50-85); Total Cells Counted 100
[2019-07-11] MEDS: SODIUM CHLORIDE 0.9% 1,000 ML IV SCH (07:38)
[2019-07-11] MEDS ORDERED: FAMOTIDINE 20 MG TABLET PO SCH (09:00)
[2019-07-11 09:15] LABS: Apearance,Urine CLEAR (Clear); Bacteria,Urine Occasional /HPF (Few); Bilirubin,Urine Negative (Negative); Blood, Urine Moderate mg/dL (Negative); Glucose,Urine (UA) Negative (Negative); Ketones,Urine 5 mg/dL (Negative); Mucus,Urine Occasional /LPF (Occasional); Nitrite,Urine Negative (Negative); Protein,Urine Negative; RBC,Urine 9 /HPF (0-4); Urine Color Yellow (Yellow); Urine Specific Gravity 1.008 (1.001-1.035); Urine Urobilinogen < 2.0 EU/DL (0.2-1.0); WBC,Urine 4 /HPF (0-6)
[2019-07-11] MEDS: ALBUMIN 25% 25 GM in PREMIX 1 EACH IV SCH ×2 (09:49→16:42)
[2019-07-11] MEDS: ASPIRIN EC 81 MG TABLET PO SCH (09:50)
[2019-07-11] MEDS: ENOXAPARIN 30 MG/0.3 ML SYRINGE SUBCUT SCH (09:50)
[2019-07-11] MEDS: CALCIUM (CARBONATE)/VITAMIN D 600 MG-400 UNIT TABLET PO SCH (09:50)
[2019-07-11] MEDS: hydrOXYzine HCL 25 MG TABLET PO SCH ×2 (09:51→20:48)
[2019-07-11] MEDS: methylPREDNISolone SOD SUC 40 MG/1 ML VIAL IV SCH ×2 (09:51→20:50)
[2019-07-11] MEDS: carvediloL 25 MG TABLET PO SCH ×2 (09:51→20:48)
[2019-07-11] MEDS: DOCUSATE SODIUM 100 MG CAPSULE PO SCH ×2 (09:51→20:48)
[2019-07-11] MEDS: TRIAMCINOLONE 0.1% CREAM 15 GM TUBE TOP SCH ×2 (09:54→20:52)
[2019-07-11] MEDS: SODIUM CHLORIDE 23.4% CONC INJ 38.5 MEQ, SODIUM BICARB INJ 100 MEQ in STERILE WATER INJ... IV SCH (09:55)
[2019-07-11] MEDS: AZELASTINE NASAL 137 MCG/SPRAY 30 ML BOTTLE BOTH NARES SCH ×2 (09:55→20:52)
[2019-07-11] MEDS ORDERED: FUROSEMIDE 40 MG/4 ML VIAL IV ONE ×2 (11:50→18:00)
[2019-07-11] MEDS: diphenhydrAMINE CAP 25 MG CAPSULE PO PRN (20:48)
[2019-07-11] MEDS: ZALEPLON 5 MG CAPSULE PO PRN (20:48)
[2019-07-12] MEDS: SODIUM CHLORIDE 23.4% CONC INJ 38.5 MEQ, SODIUM BICARB INJ 100 MEQ in STERILE WATER INJ... IV SCH ×2 (00:52→10:01)
[2019-07-12] MEDS: ALBUMIN 25% 25 GM in PREMIX 1 EACH IV SCH ×3 (01:07→15:44)
[2019-07-12 04:25] LABS: Basophils % 0.1 % (0.0-0.8); Hematocrit 28.7 VOL% (35.7-47.0); Hemoglobin 9.8 GM/DL (12.0-16.0); Immature Granulocytes % 0.9 %; Immature Granulocytes Absolute 0.07 #; Lymphocytes # 0.3 10*3/uL (1.4-4.0); Lymphocytes % 4.4 % (21.3-54.2); Mean Corpuscular HGB Conc 34.1 GM/DL (32-36); Mean Corpuscular Volume 98.6 FL (87-102); Monocytes % 1.7 % (1.7-12.7); Neutrophils % 92.9 % (38.7-73.9); Platelet Count 248 T/CUMM (130-400); Red Blood Count 2.91 MC/CUMM (3.8-5.5); Red Cell Distribution Width 16.2 % (9.3-17.3); White Blood Count 7.8 T/CUMM (4-12)
[2019-07-12 04:33] LABS: INR 1.6; PT Patient Result 17.4 SECS (9.6-12.2)
[2019-07-12 04:57] LABS: Bilirubin,Direct 0.37 MG/DL (0.0-0.20); Bilirubin,Indirect 0.5 MG/DL (0.0-1.0); Bilirubin,Total 0.9 MG/DL (0.2-1.0); Total Protein 5.9 G/DL (6.4-8.3)
[2019-07-12 04:59] LABS: Calcium 7.1 MG/DL (8.5-10.1); Osmolality,Calculated 292.7 MOS/KG (273-304)
[2019-07-12 05:21] LABS: Lymphocytes 2 % (20-55); Segmented Neutrophils 97 % (50-85); Total Cells Counted 100
[2019-07-12 05:22] LABS: Anisocytosis 1+; Ovalocytes Few; Platelet Estimate Adequate
[2019-07-12] MEDS: ALBUTEROL/IPRATROPIUM 3 ML NEB RESP TX SCH ×2 (07:03→19:25)
[2019-07-12] MEDS ORDERED: GLUCAGON 1 MG VIAL IM PRN (08:36)
[2019-07-12] MEDS ORDERED: DEXTROSE 50% 25 GM/50 ML VIAL IV PRN (08:36)
[2019-07-12] MEDS: CALCIUM (CARBONATE)/VITAMIN D 600 MG-400 UNIT TABLET PO SCH (10:01)
[2019-07-12] MEDS: DOCUSATE SODIUM 100 MG CAPSULE PO SCH ×2 (10:01→20:33)
[2019-07-12] MEDS: ASPIRIN EC 81 MG TABLET PO SCH (10:02)
[2019-07-12] MEDS: hydrOXYzine HCL 25 MG TABLET PO SCH ×2 (10:02→20:32)
[2019-07-12] MEDS: FAMOTIDINE 20 MG TABLET PO SCH (10:03)
[2019-07-12] MEDS: ENOXAPARIN 30 MG/0.3 ML SYRINGE SUBCUT SCH (10:03)
[2019-07-12] MEDS: carvediloL 25 MG TABLET PO SCH ×2 (10:03→20:32)
[2019-07-12] MEDS: methylPREDNISolone SOD SUC 125 MG/2 ML VIAL IV SCH ×2 (10:04→20:33)
[2019-07-12] MEDS: AZELASTINE NASAL 137 MCG/SPRAY 30 ML BOTTLE BOTH NARES SCH ×2 (10:05→20:34)
[2019-07-12] MEDS: TRIAMCINOLONE 0.1% CREAM 15 GM TUBE TOP SCH ×2 (10:05→20:34)
[2019-07-12] MEDS: INSULIN LISPRO 100 UNIT/ML SUBCUT SCH ×3 (13:55→20:33)
[2019-07-12] MEDS: ALBUTEROL 2.5 MG/3 ML NEB RESP TX PRN (14:40)
[2019-07-12] MEDS ORDERED: FUROSEMIDE 40 MG/4 ML VIAL IV ONE (14:48)
[2019-07-12] MEDS: ZALEPLON 5 MG CAPSULE PO PRN (21:49)
[2019-07-12] MEDS: diphenhydrAMINE CAP 25 MG CAPSULE PO PRN (21:52)
[2019-07-13] MEDS: ALBUMIN 25% 25 GM in PREMIX 1 EACH IV SCH (00:52)
[2019-07-13] MEDS: ONDANSETRON 4 MG/2 ML VIAL IV PRN (03:32)
[2019-07-13 06:16] LABS: Basophils % 0.1 % (0.0-0.8); Hematocrit 30.4 VOL% (35.7-47.0); Hemoglobin 9.8 GM/DL (12.0-16.0); Immature Granulocytes Absolute 0.12 #; Lymphocytes # 0.4 10*3/uL (1.4-4.0); Mean Corpuscular HGB Conc 32.2 GM/DL (32-36); Mean Corpuscular Volume 96.2 FL (87-102); Mean Platelet Volume 10.9 FL (9.6-12.0); Neutrophils % 92.9 % (38.7-73.9); Platelet Count 309 T/CUMM (130-400); Red Blood Count 3.16 MC/CUMM (3.8-5.5); Red Cell Distribution Width 15.6 % (9.3-17.3); White Blood Count 11.6 T/CUMM (4-12)
[2019-07-13 06:31] LABS: Albumin 3.8 G/DL (3.4-5.0); Calcium 7.4 MG/DL (8.5-10.1); Osmolality,Calculated 285.8 MOS/KG (273-304)
[2019-07-13] MEDS: ALBUTEROL/IPRATROPIUM 3 ML NEB RESP TX SCH ×4 (08:23→19:42)
[2019-07-13] MEDS: methylPREDNISolone SOD SUC 125 MG/2 ML VIAL IV SCH ×2 (09:37→20:32)
[2019-07-13] MEDS: CALCIUM (CARBONATE)/VITAMIN D 600 MG-400 UNIT TABLET PO SCH (09:37)
[2019-07-13] MEDS: ASPIRIN EC 81 MG TABLET PO SCH (09:37)
[2019-07-13] MEDS: hydrOXYzine HCL 25 MG TABLET PO SCH ×2 (09:37→20:31)
[2019-07-13] MEDS: TRIAMCINOLONE 0.1% CREAM 15 GM TUBE TOP SCH ×2 (09:38→20:34)
[2019-07-13] MEDS: carvediloL 25 MG TABLET PO SCH ×2 (09:38→20:32)
[2019-07-13] MEDS: DOCUSATE SODIUM 100 MG CAPSULE PO SCH ×2 (09:38→20:32)
[2019-07-13] MEDS: ENOXAPARIN 30 MG/0.3 ML SYRINGE SUBCUT SCH (09:38)
[2019-07-13] MEDS: AZELASTINE NASAL 137 MCG/SPRAY 30 ML BOTTLE BOTH NARES SCH ×2 (09:39→20:33)
[2019-07-13] MEDS ORDERED: FUROSEMIDE 40 MG/4 ML VIAL IV ONE (09:44)
[2019-07-13] MEDS: INSULIN LISPRO 100 UNIT/ML SUBCUT SCH ×4 (10:23→20:33)
[2019-07-13 11:21] LABS: Lymphocytes 4 % (20-55); Platelet Estimate Normal; Polychromasia Slight; Segmented Neutrophils 93 % (50-85); Total Cells Counted 100
[2019-07-13 11:41] LABS: ABG Base Excess -2.2 MMOL/L (-2.5-2.5); ABG HCO3 20.7 MMOL/L (20-26); ABG Oxygen Saturation 86.2 % (95-100); ABG PH 7.457 (7.35-7.45); ABG TCO2 21.6 MMOL/L (23-27)
[2019-07-13] MEDS: ACETAMINOPHEN 325 MG TABLET PO PRN (12:05)
[2019-07-13] MEDS: FAMOTIDINE 20 MG TABLET PO SCH (15:07)
[2019-07-13] MEDS ORDERED: FUROSEMIDE 100 MG/10 ML VIAL IV ONE (15:12)
[2019-07-13] MEDS ORDERED: FUROSEMIDE INJ 120 MG in SODIUM CHLORIDE 0.9% 50 ML IV ONE (15:30)
[2019-07-13] MEDS: FUROSEMIDE 40 MG/4 ML VIAL IV SCH (20:35)
[2019-07-13] MEDS: ZALEPLON 5 MG CAPSULE PO PRN (20:43)
[2019-07-14 06:23] LABS: Basophils % 0.1 % (0.0-0.8); Hematocrit 28.6 VOL% (35.7-47.0); Immature Granulocytes % 1.6 %; Immature Granulocytes Absolute 0.18 #; Lymphocytes # 0.3 10*3/uL (1.4-4.0); Lymphocytes % 2.9 % (21.3-54.2); Mean Corpuscular Volume 97.6 FL (87-102); Mean Platelet Volume 10.8 FL (9.6-12.0); Monocytes % 3.6 % (1.7-12.7); Neutrophils % 91.8 % (38.7-73.9); Platelet Count 285 T/CUMM (130-400); Red Blood Count 2.93 MC/CUMM (3.8-5.5); Red Cell Distribution Width 15.9 % (9.3-17.3); White Blood Count 11.1 T/CUMM (4-12)
[2019-07-14 06:41] LABS: Albumin 3.1 G/DL (3.4-5.0); Calcium 6.8 MG/DL (8.5-10.1); Osmolality,Calculated 292.7 MOS/KG (273-304)
[2019-07-14 06:44] LABS: Albumin 3.1 G/DL (3.4-5.0); Anisocytosis 1+; Band Neutrophils 7 % (0-10); Bilirubin,Total 1.7 MG/DL (0.2-1.0); Lymphocytes 3 % (20-55); Osmolality,Calculated 295.5 MOS/KG (273-304); Platelet Estimate Normal; Poikilocytosis Slight; Segmented Neutrophils 87 % (50-85); Total Cells Counted 100; Total Protein 5.8 G/DL (6.4-8.3)
[2019-07-14] MEDS: ALBUTEROL/IPRATROPIUM 3 ML NEB RESP TX SCH ×4 (07:20→19:50)
[2019-07-14] MEDS: INSULIN LISPRO 100 UNIT/ML SUBCUT SCH ×4 (09:35→20:45)
[2019-07-14] MEDS: FUROSEMIDE 40 MG/4 ML VIAL IV SCH ×2 (10:24→20:32)
[2019-07-14] MEDS: methylPREDNISolone SOD SUC 125 MG/2 ML VIAL IV SCH ×2 (10:30→20:46)
[2019-07-14] MEDS: hydrOXYzine HCL 25 MG TABLET PO SCH ×2 (10:31→20:33)
[2019-07-14] MEDS: ENOXAPARIN 30 MG/0.3 ML SYRINGE SUBCUT SCH (10:31)
[2019-07-14] MEDS: DOCUSATE SODIUM 100 MG CAPSULE PO SCH ×2 (10:31→20:33)
[2019-07-14] MEDS: FAMOTIDINE 20 MG TABLET PO SCH (10:31)
[2019-07-14] MEDS: CALCIUM (CARBONATE)/VITAMIN D 600 MG-400 UNIT TABLET PO SCH (10:32)
[2019-07-14] MEDS: ASPIRIN EC 81 MG TABLET PO SCH (10:32)
[2019-07-14] MEDS: carvediloL 25 MG TABLET PO SCH ×2 (10:32→20:33)
[2019-07-14] MEDS: AZELASTINE NASAL 137 MCG/SPRAY 30 ML BOTTLE BOTH NARES SCH ×2 (10:41→20:31)
[2019-07-14] MEDS: TRIAMCINOLONE 0.1% CREAM 15 GM TUBE TOP SCH ×2 (10:41→20:34)
[2019-07-15 05:21] LABS: Basophils % 0.1 % (0.0-0.8); Hematocrit 30.7 VOL% (35.7-47.0); Hemoglobin 10.1 GM/DL (12.0-16.0); Immature Granulocytes % 1.8 %; Immature Granulocytes Absolute 0.23 #; Lymphocytes # 0.4 10*3/uL (1.4-4.0); Lymphocytes % 2.9 % (21.3-54.2); Mean Corpuscular HGB Conc 32.9 GM/DL (32-36); Mean Corpuscular Volume 95.3 FL (87-102); Mean Platelet Volume 10.7 FL (9.6-12.0); Monocytes % 2.9 % (1.7-12.7); Neutrophils % 92.3 % (38.7-73.9); Platelet Count 304 T/CUMM (130-400); Red Blood Count 3.22 MC/CUMM (3.8-5.5); Red Cell Distribution Width 15.2 % (9.3-17.3); White Blood Count 12.6 T/CUMM (4-12)
[2019-07-15 05:40] LABS: Albumin 2.7 G/DL (3.4-5.0); Calcium 6.9 MG/DL (8.5-10.1); Osmolality,Calculated 298.5 MOS/KG (273-304)
[2019-07-15 05:41] LABS: Lymphocytes 3 % (20-55); Segmented Neutrophils 97 % (50-85); Total Cells Counted 100
[2019-07-15 05:43] LABS: Anisocytosis 1+; Ovalocytes Few; Platelet Estimate Normal
[2019-07-15 05:57] LABS: Albumin 2.8 G/DL (3.4-5.0); Bilirubin,Direct 0.66 MG/DL (0.0-0.20); Bilirubin,Indirect 0.6 MG/DL (0.0-1.0); Bilirubin,Total 1.3 MG/DL (0.2-1.0); Total Protein 5.2 G/DL (6.4-8.3)
[2019-07-15] MEDS: ALBUTEROL/IPRATROPIUM 3 ML NEB RESP TX SCH ×4 (07:32→19:30)
[2019-07-15] MEDS: INSULIN LISPRO 100 UNIT/ML SUBCUT SCH ×4 (09:51→21:36)
[2019-07-15] MEDS: FAMOTIDINE 20 MG TABLET PO SCH (09:53)
[2019-07-15] MEDS: carvediloL 25 MG TABLET PO SCH ×2 (09:53→21:33)
[2019-07-15] MEDS: CALCIUM (CARBONATE)/VITAMIN D 600 MG-400 UNIT TABLET PO SCH (09:53)
[2019-07-15] MEDS: ASPIRIN EC 81 MG TABLET PO SCH (09:53)
[2019-07-15] MEDS: hydrOXYzine HCL 25 MG TABLET PO SCH ×2 (09:54→21:33)
[2019-07-15] MEDS: DOCUSATE SODIUM 100 MG CAPSULE PO SCH ×2 (09:54→21:33)
[2019-07-15] MEDS: AZELASTINE NASAL 137 MCG/SPRAY 30 ML BOTTLE BOTH NARES SCH ×2 (09:55→21:37)
[2019-07-15] MEDS: ENOXAPARIN 30 MG/0.3 ML SYRINGE SUBCUT SCH (09:57)
[2019-07-15] MEDS: methylPREDNISolone SOD SUC 125 MG/2 ML VIAL IV SCH ×2 (09:58→21:33)
[2019-07-15] MEDS: TRIAMCINOLONE 0.1% CREAM 15 GM TUBE TOP SCH ×2 (10:04→21:40)
[2019-07-15] MEDS: FUROSEMIDE 40 MG/4 ML VIAL IV SCH (10:04)
[2019-07-15] MEDS: ZALEPLON 5 MG CAPSULE PO PRN (21:33)
[2019-07-16 05:29] LABS: Basophils % 0.2 % (0.0-0.8); Hematocrit 31.5 VOL% (35.7-47.0); Hemoglobin 10.5 GM/DL (12.0-16.0); Immature Granulocytes % 2.7 %; Immature Granulocytes Absolute 0.33 #; Lymphocytes # 0.4 10*3/uL (1.4-4.0); Mean Corpuscular HGB Conc 33.3 GM/DL (32-36); Mean Platelet Volume 10.7 FL (9.6-12.0); Monocytes % 3.4 % (1.7-12.7); Neutrophils % 90.7 % (38.7-73.9); Platelet Count 338 T/CUMM (130-400); Red Blood Count 3.35 MC/CUMM (3.8-5.5); Red Cell Distribution Width 15.1 % (9.3-17.3); White Blood Count 12.3 T/CUMM (4-12)
[2019-07-16 05:50] LABS: Hypochromasia 1+; Lymphocytes 1 % (20-55); Platelet Estimate Adequate; Segmented Neutrophils 96 % (50-85); Total Cells Counted 100
[2019-07-16 06:03] LABS: Albumin 2.4 G/DL (3.4-5.0); Bilirubin,Total 1.2 MG/DL (0.2-1.0); Calcium 6.3 MG/DL (8.5-10.1); Osmolality,Calculated 307.3 MOS/KG (273-304); Total Protein 5.4 G/DL (6.4-8.3)
[2019-07-16] MEDS: ALBUTEROL/IPRATROPIUM 3 ML NEB RESP TX SCH ×4 (07:37→20:56)
[2019-07-16] MEDS: ENOXAPARIN 30 MG/0.3 ML SYRINGE SUBCUT SCH (09:26)
[2019-07-16] MEDS: FUROSEMIDE 40 MG/4 ML VIAL IV SCH (09:27)
[2019-07-16] MEDS: hydrOXYzine HCL 25 MG TABLET PO SCH ×2 (09:28→21:29)
[2019-07-16] MEDS: TRIAMCINOLONE 0.1% CREAM 15 GM TUBE TOP SCH ×2 (09:28→21:32)
[2019-07-16] MEDS: AZELASTINE NASAL 137 MCG/SPRAY 30 ML BOTTLE BOTH NARES SCH ×2 (09:28→21:32)
[2019-07-16] MEDS: FAMOTIDINE 20 MG TABLET PO SCH (09:28)
[2019-07-16] MEDS: DOCUSATE SODIUM 100 MG CAPSULE PO SCH ×2 (09:28→21:29)
[2019-07-16] MEDS: carvediloL 25 MG TABLET PO SCH ×2 (09:28→21:29)
[2019-07-16] MEDS: ASPIRIN EC 81 MG TABLET PO SCH (09:28)
[2019-07-16] MEDS: CALCIUM (CARBONATE)/VITAMIN D 600 MG-400 UNIT TABLET PO SCH (09:28)
[2019-07-16] MEDS: methylPREDNISolone SOD SUC 125 MG/2 ML VIAL IV SCH (09:30)
[2019-07-16] MEDS: INSULIN LISPRO 100 UNIT/ML SUBCUT SCH ×4 (09:32→21:31)
[2019-07-16] MEDS: methylPREDNISolone SOD SUC 40 MG/1 ML VIAL IV SCH (21:29)
[2019-07-17] MEDS: ALBUTEROL/IPRATROPIUM 3 ML NEB RESP TX SCH ×4 (07:46→19:34)
[2019-07-17] MEDS ORDERED: MAGNESIUM HYDROXIDE SUSP 30 ML UDCUP PO ONE (08:31)
[2019-07-17] MEDS: INSULIN LISPRO 100 UNIT/ML SUBCUT SCH ×4 (08:32→21:25)
[2019-07-17 08:50] LABS: Albumin 2.2 G/DL (3.4-5.0); Bilirubin,Total 1.5 MG/DL (0.2-1.0); Calcium 6.1 MG/DL (8.5-10.1); Osmolality,Calculated 311.1 MOS/KG (273-304); Total Protein 5.1 G/DL (6.4-8.3)
[2019-07-17] MEDS: methylPREDNISolone SOD SUC 40 MG/1 ML VIAL IV SCH ×2 (08:53→21:24)
[2019-07-17] MEDS: FAMOTIDINE 20 MG TABLET PO SCH (08:55)
[2019-07-17] MEDS: carvediloL 25 MG TABLET PO SCH ×2 (08:55→21:25)
[2019-07-17] MEDS: hydrOXYzine HCL 25 MG TABLET PO SCH ×2 (08:55→21:35)
[2019-07-17] MEDS: ASPIRIN EC 81 MG TABLET PO SCH (08:55)
[2019-07-17] MEDS: FUROSEMIDE 40 MG/4 ML VIAL IV SCH (08:55)
[2019-07-17] MEDS: ENOXAPARIN 30 MG/0.3 ML SYRINGE SUBCUT SCH (08:55)
[2019-07-17] MEDS: CALCIUM (CARBONATE)/VITAMIN D 600 MG-400 UNIT TABLET PO SCH (08:55)
[2019-07-17] MEDS: DOCUSATE SODIUM 100 MG CAPSULE PO SCH ×2 (09:02→21:25)
[2019-07-17] MEDS: TRIAMCINOLONE 0.1% CREAM 15 GM TUBE TOP SCH ×2 (09:02→21:27)
[2019-07-17] MEDS: AZELASTINE NASAL 137 MCG/SPRAY 30 ML BOTTLE BOTH NARES SCH ×2 (09:02→21:26)
[2019-07-17 09:21] LABS: Basophils % 0.2 % (0.0-0.8); Hematocrit 32.7 VOL% (35.7-47.0); Immature Granulocytes % 3.1 %; Immature Granulocytes Absolute 0.41 #; Lymphocytes # 0.7 10*3/uL (1.4-4.0); Monocytes % 4.8 % (1.7-12.7); Neutrophils % 86.9 % (38.7-73.9); Platelet Count 340 T/CUMM (130-400); Red Blood Count 3.48 MC/CUMM (3.8-5.5); Red Cell Distribution Width 14.9 % (9.3-17.3); White Blood Count 13.3 T/CUMM (4-12)
[2019-07-17 09:22] LABS: Hemoglobin 10.8 GM/DL (12.0-16.0)
[2019-07-17] MEDS ORDERED: FUROSEMIDE 40 MG/4 ML VIAL IV SCH (19:23)
[2019-07-17] MEDS ORDERED: ZALEPLON 5 MG CAPSULE PO ONE (22:45)
[2019-07-17] MEDS: ACETAMINOPHEN 325 MG TABLET PO PRN (23:22)
[2019-07-17] MEDS: diphenhydrAMINE CAP 25 MG CAPSULE PO PRN (23:22)
[2019-07-18 06:23] LABS: Basophils % 0.2 % (0.0-0.8); Hemoglobin 10.4 GM/DL (12.0-16.0); Immature Granulocytes % 4.4 %; Immature Granulocytes Absolute 0.51 #; Lymphocytes # 0.5 10*3/uL (1.4-4.0); Lymphocytes % 4.3 % (21.3-54.2); Mean Corpuscular HGB Conc 32.5 GM/DL (32-36); Mean Platelet Volume 10.7 FL (9.6-12.0); Monocytes % 4.2 % (1.7-12.7); Neutrophils % 86.9 % (38.7-73.9); Platelet Count 354 T/CUMM (130-400); Red Blood Count 3.37 MC/CUMM (3.8-5.5); White Blood Count 11.5 T/CUMM (4-12)
[2019-07-18 06:44] LABS: Calcium 6.6 MG/DL (8.5-10.1); Hypochromasia 1+; Lymphocytes 2 % (20-55); Platelet Estimate Adequate; Segmented Neutrophils 93 % (50-85); Total Cells Counted 100
[2019-07-18] MEDS: ALBUTEROL/IPRATROPIUM 3 ML NEB RESP TX SCH (07:43)
[2019-07-18] MEDS: INSULIN LISPRO 100 UNIT/ML SUBCUT SCH ×2 (09:06→13:09)
[2019-07-18] MEDS: ENOXAPARIN 30 MG/0.3 ML SYRINGE SUBCUT SCH (09:06)
[2019-07-18] MEDS: ASPIRIN EC 81 MG TABLET PO SCH (09:07)
[2019-07-18] MEDS: methylPREDNISolone SOD SUC 40 MG/1 ML VIAL IV SCH (09:07)
[2019-07-18] MEDS: CALCIUM (CARBONATE)/VITAMIN D 600 MG-400 UNIT TABLET PO SCH (09:08)
[2019-07-18] MEDS: hydrOXYzine HCL 25 MG TABLET PO SCH (09:08)
[2019-07-18] MEDS: FAMOTIDINE 20 MG TABLET PO SCH (09:08)
[2019-07-18] MEDS: carvediloL 25 MG TABLET PO SCH (09:09)
[2019-07-18] MEDS: DOCUSATE SODIUM 100 MG CAPSULE PO SCH (09:13)
[2019-07-18] MEDS: AZELASTINE NASAL 137 MCG/SPRAY 30 ML BOTTLE BOTH NARES SCH (09:14)
[2019-07-18] MEDS: TRIAMCINOLONE 0.1% CREAM 15 GM TUBE TOP SCH (09:14)
[2019-07-18] MEDS ORDERED: WARFARIN 5 MG TABLET PO ONE (09:30)
[2019-07-18 11:28] VITALS: BP 125/62
[2019-07-19] MEDS ORDERED: WARFARIN 2 MG TABLET PO SCH (18:00)
== END 2019-07-18 15:50 | disposition swing bed (61) | DRG 682 ==
LOC: EDBD → EDUNIT# → N.ED 15:39 → N.EDINP 17:39 → N.5E 18:56
PROVIDERS: ADMIT Family Medicine; ATTEND Family Medicine

== ENCOUNTER 2019-09-26 15:26 | Observation (INO) ==
[2019-09-26] MEDS ORDERED: PANTOPRAZOLE 40 MG VIAL IV STA (16:10)
[2019-09-26] MEDS ORDERED: ONDANSETRON 4 MG/2 ML VIAL IV STA (16:10)
[2019-09-26] MEDS ORDERED: DICYCLOMINE 20 MG/2 ML AMP IM ONE (16:10)
[2019-09-26 16:52] LABS: Basophils # 0.1 10*3/uL (0.0-0.2); Basophils % 1.2 % (0.0-0.8); Eosinophils # 0.1 10*3/uL (0.0-0.87); Eosinophils % 2.2 % (0.00-10.9); Hematocrit 27.3 VOL% (35.7-47.0); Hemoglobin 8.9 GM/DL (12.0-16.0); Immature Granulocytes % 1.2 %; Immature Granulocytes Absolute 0.07 #; Lymphocytes # 0.6 10*3/uL (1.4-4.0); Lymphocytes % 9.4 % (21.3-54.2); Mean Corpuscular HGB Conc 32.6 GM/DL (32-36); Mean Corpuscular Volume 99.6 FL (87-102); Mean Platelet Volume 10.1 FL (9.6-12.0); Monocytes % 1.5 % (1.7-12.7); Neutrophils % 84.5 % (38.7-73.9); Platelet Count 245 T/CUMM (130-400); Red Blood Count 2.74 MC/CUMM (3.8-5.5); Red Cell Distribution Width 16.4 % (9.3-17.3); White Blood Count 5.9 T/CUMM (4-12)
[2019-09-26 17:02] LABS: INR 1.7; PT Patient Result 18.7 SECS (9.6-12.2); Partial Thromboplastin Time 30.8 SECS (20.8-36.0)
[2019-09-26 17:20] LABS: Alanine Aminotransferase 34 U/L (13-56); Alkaline Phosphatase 88 U/L (45-117); Aspartate Amino Transferase 27 U/L (0-37); Bilirubin,Total < 0.39 MG/DL (0.2-1.0); Blood Urea Nitrogen 35 MG/DL (7-18); Calcium 8.2 MG/DL (8.5-10.1); Estimated Glom Filtration Rate 19 ML/MIN; Glucose 124 MG/DL (74-106); Total Protein 6.4 G/DL (6.4-8.3); Troponin I < 0.015 NG/ML (0.00-0.045)
[2019-09-26] MEDS ORDERED: ACETAMINOPHEN 500 MG TABLET PO PRN (18:25)
[2019-09-26] MEDS ORDERED: ONDANSETRON 4 MG/2 ML VIAL IV PRN (18:25)
[2019-09-26] MEDS ORDERED: diphenhydrAMINE CAP 25 MG CAPSULE PO PRN (19:58)
[2019-09-26] MEDS: ALBUTEROL/IPRATROPIUM 3 ML NEB RESP TX SCH (21:00)
[2019-09-26] MEDS ORDERED: hydrOXYzine HCL 25 MG TABLET PO SCH (21:00)
[2019-09-26] MEDS ORDERED: DONEPEZIL 5 MG TABLET PO SCH (21:00)
[2019-09-26] MEDS ORDERED: ATORVASTATIN 10 MG TABLET PO SCH (21:00)
[2019-09-26] MEDS ORDERED: MONTELUKAST 10 MG TABLET PO SCH (21:00)
[2019-09-26] MEDS ORDERED: ZALEPLON 5 MG CAPSULE PO SCH (21:00)
[2019-09-26] MEDS: carvediloL 25 MG TABLET PO SCH (21:43)
[2019-09-26] MEDS: AMIODARONE 200 MG TABLET PO SCH (21:43)
[2019-09-26] MEDS: SODIUM CHLORIDE 0.9% 1,000 ML IV SCH (21:43)
[2019-09-26] MEDS: AZELASTINE NASAL 137 MCG/SPRAY 30 ML BOTTLE BOTH NARES SCH (22:25)
[2019-09-27] MEDS: ALBUTEROL/IPRATROPIUM 3 ML NEB RESP TX SCH ×2 (00:25→07:14)
[2019-09-27 04:56] LABS: Basophils % 0.2 % (0.0-0.8); Hematocrit 22.8 VOL% (35.7-47.0); Hemoglobin 8.2 GM/DL (12.0-16.0); Immature Granulocytes % 1.6 %; Immature Granulocytes Absolute 0.07 #; Lymphocytes # 0.6 10*3/uL (1.4-4.0); Lymphocytes % 12.2 % (21.3-54.2); Mean Corpuscular Volume 103.2 FL (87-102); Mean Platelet Volume 10.8 FL (9.6-12.0); Monocytes % 0.7 % (1.7-12.7); Neutrophils % 85.3 % (38.7-73.9); Platelet Count 211 T/CUMM (130-400); Red Blood Count 2.21 MC/CUMM (3.8-5.5); Red Cell Distribution Width 17.2 % (9.3-17.3); White Blood Count 4.5 T/CUMM (4-12)
[2019-09-27 05:01] LABS: INR 1.5; PT Patient Result 16.4 SECS (9.6-12.2)
[2019-09-27 05:13] LABS: Calcium 8.3 MG/DL (8.5-10.1)
[2019-09-27] MEDS ORDERED: SODIUM CHLORIDE 0.9% 1,000 ML IV PRN (07:24)
[2019-09-27] MEDS ORDERED: PANTOPRAZOLE 40 MG TABLET PO SCH (07:30)
[2019-09-27] MEDS: AZELASTINE NASAL 137 MCG/SPRAY 30 ML BOTTLE BOTH NARES SCH (08:08)
[2019-09-27] MEDS: AMIODARONE 200 MG TABLET PO SCH ×2 (08:09→08:16)
[2019-09-27] MEDS: carvediloL 25 MG TABLET PO SCH (08:09)
[2019-09-27] MEDS: SODIUM CHLORIDE 0.9% 1,000 ML IV SCH (08:15)
[2019-09-27] MEDS ORDERED: predniSONE 10 MG TABLET PO SCH (09:00)
[2019-09-27] MEDS ORDERED: DOCUSATE SODIUM 100 MG CAPSULE PO SCH (09:00)
[2019-09-27] MEDS ORDERED: FUROSEMIDE 40 MG TABLET PO SCH (09:30)
[2019-09-27 11:31] VITALS: BP 127/52
[2019-09-27] MEDS ORDERED: WARFARIN 3 MG TABLET PO SCH (18:00)
[2019-09-30] MEDS ORDERED: WARFARIN 2 MG TABLET PO SCH (18:00)
== END 2019-09-27 13:50 | disposition home or self-care (01) ==
LOC: N.ED 15:26 → N.EDINP 15:26 → N.2W 19:36
PROVIDERS: ADMIT Family Medicine; ATTEND Family Medicine